=== PATIENT | female | born 1950 | race Caucasian/White ===

== ENCOUNTER 2018-11-25 10:58 | Inpatient (IN) ==
[2018-11-25] MEDS ORDERED: Ipratropium/Albuterol Neb 3 ML IH ONE (11:09)
[2018-11-25] MEDS ORDERED: methylPREDNISolone 125 MG/2 ML VIAL IVP ONE (11:09)
--- NOTE | 2018-11-25 11:36 | Emergency Department Note ---
Disposition Clinical Impression: Acute exacerbation of chronic obstructive airways disease, BELKIS (acute kidney injury), Hypercalcemia Disposition: Admitted As Inpatient Condition: Undetermined Time of Disposition: 13:40 SOB HPI - General Chief Complaint: ED Shortness of Breath/Dyspnea Stated Complaint: Dizziness Time Seen by Provider: 11/25/18 10:59 Source: patient Mode of arrival: wheelchair Limitations: no limitations Nursing Notes Reviewed: Yes Vital Signs Reviewed: Yes - History of Present Illness 68-year-old female history of COPD, diabetes, hypertension, hyperlipidemia arrives to the emergency department with shortness of breath, cough, lightheaded feeling. The patient states it is worsened with her cough. The patient states that whenever she has a cough she typically gets very short of breath and then whenever she stands up she becomes lightheaded. Patient has had no associated f alls. She denies any associated chest pain. Patient denies any fevers but does admit to chills. She has no other complaints at this time. She was noted to be 85 on my initial evaluation in the room on room air. She does not wear oxygen at home. The patient denies any nausea, vomiting, diarrhea, melena, hematochezia, headache, focalized weakness. No previous history of CVA. - Related Data Home Medications Medication Instructions Recorded Confirmed Albuterol Sulfate [Proair 90 mcg IH Q6H PRN 06/22/18 06/23/18 Respiclick] Aspirin [Lo-Dose Aspirin EC] 81 mg PO DAILY 06/22/18 06/23/18 Citalopram [CeleXA] 20 mg PO DAILY 06/22/18 06/23/18 Losartan [Cozaar] 50 mg PO DAILY 06/22/18 06/23/18 Magnesium Oxide [Magnesium] 250 mg PO BID 06/22/18 06/23/18 Spironolactone [Aldactone] 25 mg PO DAILY 06/22/18 06/23/18 Benzonatate 100 mg PO TID 06/23/18 06/23/18 Budesonide/Formoterol 160/4.5 2 puff IH BID 06/23/18 06/23/18 [Symbicort 160/4.5] Loratadine [Claritin] 10 mg PO DAILY 06/23/18 06/23/18 Metformin HCl 1,000 mg PO BID 06/23/18 06/23/18 Tiotropium [Spiriva] 1 puff IH DAILY 06/23/18 06/23/18 Allergies Allergy/AdvReac Type Severity Reaction Status Date / Time No Known Allergies Allergy Verified 10/14/17 20:37 All systems ED: reviewed and negative except as stated. Constitutional: Denies: fever, chills, weakness Eyes: Denies: vision change ENT ED: Denies: dysphagia Cardiovascular: Denies: chest pain Respiratory: Reports: cough, dyspnea, wheezes, sputum production. Denies: hemoptysis Gastrointestinal: Reports: constipation. Denies: abdominal pain, nausea, vomiting, diarrhea, hematemesis, melena, hematochezia Genitourinary: Denies: urgency Musculoskeletal: Denies: back pain Integumentary: Denies: rash Neurological: Denies: headache, weakness, numbness, paresthesias, confusion, vertigo Past Medical History - Past Medical History Attestation: Yes The following information was validated with the patient. Source: patient, old records reviewed Medical history: Reports: COPD, diabetes, hyperlipidemia, hypertension Surgical history: Reports: non-contributory Psychiatric history: Reports: no psych history - Social History Smoking Status: Current every day smoker Smokeless Tobacco Status: No Alcohol use: Reports: none Drug use: Reports: none Physical Exam - General Limitations: no limitations General appearance: alert, in distress (mild respiratory) - Head Head exam: atraumatic, normocephalic, normal inspection - Eye Eye exam: Present: normal appearance, PERRL, EOMI - ENT ENT exam: normal exam, normal oropharynx, mucous membranes moist - Neck Neck exam: Present: normal inspection, full ROM, trachea midline - Chest Chest inspection: Present: normal inspection, symmetric chest wall rise - Respiratory Respiratory exam: Present: respiratory distress (mild), accessory muscle use, other (decreased breath sounds bilaterally) - Cardiovascular Cardiovascular exam: Present: regular rate, normal rhythm, normal heart sounds - Abdominal Exam Abdominal exam: Present: soft, Non-Tender. Absent: tenderness, distention, guarding, rebound, rigidity - Extremities Exam Extremities exam: Present: normal inspection, full ROM, normal capillary refill. Absent: tenderness, pedal edema - Neurological Exam Neurological exam: Present: alert, oriented X3 - Skin Skin exam: Present: warm, dry, intact, normal color Course - Reevaluation(s) Reevaluation #1: Patient states she is feeling much better after getting breathing treatments. We did note that the patient had a calcium of 16.5 with an acute kidney injury with a creatinine 2.69 which appears new on lab work. Given these finding of elevated calcium the patient was started on aggressive IV fluid treatment. We paged nephrology. Currently awaiting return call. Ionized calcium ordered and repeat BMP was ordered. Time: 12:47 - Consultations Consultation #1: I spoke with Dr. Spencer in nephrology who agreed with treatment plan she will see the patient consultation. No further recommendations given here in the e mergency department. Time: 13:39 Vital Signs Temperature 97.5 F L 11/25/18 11:06 Pulse Rate 66 11/25/18 11:06 Respiratory Rate 20 11/25/18 11:06 Blood Pressure 155/67 11/25/18 11:06 O2 Sat by Pulse Oximetry 91 11/25/18 11:06 Temperature 97.5 F L 11/25/18 11:06 Pulse Rate 67 11/25/18 13:22 Respiratory Rate 18 11/25/18 13:22 Blood Pressure 158/55 11/25/18 13:22 O2 Sat by Pulse Oximetry 94 11/25/18 13:22 Oxygen Delivery Oxygen Delivery Room Air Shortness of Breath/Dyspnea - MDM Narrative Medical decision making narrative: Patient's workup in the emergency department should 20 consistent with COPD exacerbation. In addition the patient was noted to have an acute kidney injury and elevated calcium at 6.45. Patient was given 3 L of IV fluids given the patient's large amount of elevated calcium. Patient will be admitted to the hospital this time. Nephrology was consulted and will see the patient consultation. Patient was accepted to the hospital by Dr. Roach. - Lab Data Lab results reviewed: Yes I reviewed the patient's lab results. Result diagrams: 11/25/18 11:32 11/25/18 16:17 Lab Results 11/25/18 11/25/18 11/25/18 Range/Units 11:32 11:32 11:32 WBC 11.0 (4.3-11.1) K/mcL RBC 5.43 H (3.82-4.97) M/mcL Hgb 17.4 H (11.5-15.4) g/dL Hct 50.9 H (35.3-44.9) % MCV 93.7 (83.0-100.0) fL MCH 32.0 (28.0-33.3) pg MCHC 34.2 (31.6-35.5) g/dL RDW 12.9 (11.5-14.5) % Plt Count 340 (140-400) K/mcL MPV 10.2 (9.4-12.4) fL Immature Gran % 0.5 (0-4) % Seg Neutrophils % 82.0 % Lymphocytes % 10.6 % Monocytes % 6.1 % Eosinophils % 0.4 % Basophils % 0.4 % Neutrophils # 9.0 H (1.6-8.9) K/mcL Lymphocytes # 1.2 (0.6-4.6) K/mcL Monocytes # 0.7 (0.0-1.3) K/mcL Eosinophils # 0.0 (0.0-0.6) K/mcL Basophils # 0.0 (0.0-0.2) K/mcL Sodium 132 L (136-145) mEq/L Potassium 4.6 (3.5-5.1) mEq/L Chloride 92 L (98-107) mEq/L Carbon Dioxide 31 H (23-29) mEq/L BUN 39 H (8-23) mg/dL Creatinine 2.69 H (0.60-1.20) mg/dL Est GFR ( Amer) 21 L (> 60) Est GFR (Non-Af Amer) 17 L (> 60) BUN/Creatinine Ratio 14 (6-26) Glucose 155 H (70-105) mg/dL Calculated Osmolality 287 (280-300) Lactic Acid (0.5-2.2) mmol/L Calcium 16.5 H* (8.6-10.3) mg/dL Venous Ioniz Calcium (1.15-1.35) mmol/L Troponin I < 0.03 (< 0.04) ng/mL B-Natriuretic Peptide 107 H (Less than 100) pg/mL 11/25/18 11/25/18 11/25/18 Range/Units 11:47 13:02 13:02 WBC (4.3-11.1) K/mcL RBC (3.82-4.97) M/mcL Hgb (11.5-15.4) g/dL Hct (35.3-44.9) % MCV (83.0-100.0) fL MCH (28.0-33.3) pg MCHC (31.6-35.5) g/dL RDW (11.5-14.5) % Plt Count (140-400) K/mcL MPV (9.4-12.4) fL Immature Gran % (0-4) % Seg Neutrophils % % Lymphocytes % % Monocytes % % Eosinophils % % Basophils % % Neutrophils # (1.6-8.9) K/mcL Lymphocytes # (0.6-4.6) K/mcL Monocytes # (0.0-1.3) K/mcL Eosinophils # (0.0-0.6) K/mcL Basophils # (0.0-0.2) K/mcL Sodium (136-145) mEq/L Potassium (3.5-5.1) mEq/L Chloride (98-107) mEq/L Carbon Dioxide (23-29) mEq/L BUN (8-23) mg/dL Creatinine (0.60-1.20) mg/dL Est GFR ( Amer) (> 60) Est GFR (Non-Af Amer) (> 60) BUN/Creatinine Ratio (6-26) Glucose (70-105) mg/dL Calculated Osmolality (280-300) Lactic Acid 1.4 1.8 (0.5-2.2) mmol/L Calcium 14.8 H* (8.6-10.3) mg/dL Venous Ioniz Calcium (1.15-1.35) mmol/L Troponin I (< 0.04) ng/mL B-Natriuretic Peptide (Less than 100) pg/mL 11/25/18 Range/Units 13:13 WBC (4.3-11.1) K/mcL RBC (3.82-4.97) M/mcL Hgb (11.5-15.4) g/dL Hct (35.3-44.9) % MCV (83.0-100.0) fL MCH (28.0-33.3) pg MCHC (31.6-35.5) g/dL RDW (11.5-14.5) % Plt Count (140-400) K/mcL MPV (9.4-12.4) fL Immature Gran % (0-4) % Seg Neutrophils % % Lymphocytes % % Monocytes % % Eosinophils % % Basophils % % Neutrophils # (1.6-8.9) K/mcL Lymphocytes # (0.6-4.6) K/mcL Monocytes # (0.0-1.3) K/mcL Eosinophils # (0.0-0.6) K/mcL Basophils # (0.0-0.2) K/mcL Sodium (136-145) mEq/L Potassium (3.5-5.1) mEq/L Chloride (98-107) mEq/L Carbon Dioxide (23-29) mEq/L BUN (8-23) mg/dL Creatinine (0.60-1.20) mg/dL Est GFR ( Amer) (> 60) Est GFR (Non-Af Amer) (> 60) BUN/Creatinine Ratio (6-26) Glucose (70-105) mg/dL Calculated Osmolality (280-300) Lactic Acid (0.5-2.2) mmol/L Calcium (8.6-10.3) mg/dL Venous Ioniz Calcium 1.84 H (1.15-1.35) mmol/L Troponin I (< 0.04) ng/mL B-Natriuretic Peptide (Less than 100) pg/mL - Radiology Data Radiology results reviewed: Yes I reviewed the patient's radiology results. Chest X-Ray 11/25/18 11:09 IMPRESSION: No radiographic evidence of acute cardiopulmonary process. D/ / Vinicio Covington MD / Vinicio Covington MD Interpreting Provider: Vinicio Covington MD - EKG Data EKG attestation: Yes I reviewed and interpreted this EKG. EKG results narrative: Heart rate 60 bpm. Normal sinus rhythm. No ST depression but ST elevation noted in isolated V3. Repeat EKG: Heart rate 63 beats for minute. Normal sinus rhythm. No ST elevation or ST depression noted. Isolated ST elevation in V3 previously seen likely due to artifact. Attestation Statement - Attestation Attestation: Resident Attestation: I examined this patient and my medical decision making was reviewed with the Resident Physician. I agree with the documented findings, disposition and treatment plan as described except to the extent set forth below. We independently had [id number] contact with the patient. EKG reviewed with resident physician and agree with documentation. Patient presenting for evaluation of shortness of breath as well as near syncope. Patient with diffuse wheezing on exam. History of COPD. Home treatments with inhaler as well as controller medication which has been switched recently. Patient will undergo further evaluation for underlying dyspnea as well as possible cardiac involvement. Patient was found to have significant hypercalcemia. Patient will need under lying evaluation for underlying cause. Patient be admitted for further management of her respiratory status as well as underlying electro light on the modalities.
[2018-11-25 11:55] LABS: Basophils % 0.4 %; Eosinophils % 0.4 %; Hematocrit 50.9 % (35.3-44.9); Hemoglobin 17.4 g/dL (11.5-15.4); Immature Granulocytes % 0.5 % (0-4); Lymphocytes # 1.2 K/mcL (0.6-4.6); Lymphocytes % 10.6 %; Mean Corpuscular HGB Conc 34.2 g/dL (31.6-35.5); Mean Corpuscular Volume 93.7 fL (83.0-100.0); Mean Platelet Volume 10.2 fL (9.4-12.4); Monocytes # 0.7 K/mcL (0.0-1.3); Monocytes % 6.1 %; Platelet Count 340 K/mcL (140-400); Red Blood Count 5.43 M/mcL (3.82-4.97); Red Cell Distribution Width 12.9 % (11.5-14.5)
[2018-11-25 12:14] LABS: BUN/Creatinine Ratio 14 (6-26); Blood Urea Nitrogen 39 mg/dL (8-23); Calcium 16.5 mg/dL (8.6-10.3); Carbon Dioxide 31 mEq/L (23-29); Chloride 92 mEq/L (98-107); Glucose 155 mg/dL (70-105); Osmolality,Calculated 287 (280-300); Potassium 4.6 mEq/L (3.5-5.1); Sodium 132 mEq/L (136-145); Troponin I < 0.03 ng/mL (< 0.04); eGFR For Non-African Americans 17 (> 60)
[2018-11-25] MEDS ORDERED: 0.9 % Sodium Chloride 1,000 ML IVC ONE ×3 (12:15→12:29)
[2018-11-25 13:16] LABS: VBG Ionized Calcium 1.84 mmol/L (1.15-1.35)
[2018-11-25] MEDS ORDERED: Naloxone 0.4 MG/ML INJ IVP PRN (15:46)
[2018-11-25] MEDS ORDERED: Azithromycin 250 MG TABLET PO ONE (15:52)
[2018-11-25] MEDS ORDERED: Ipratropium/Albuterol Neb 3 ML IH PRN (15:55)
--- NOTE | 2018-11-25 16:03 | Internal Med History&Physical ---
<Juan Frakn R - Last Filed: 11/25/18 15:56> Date of Encounter: 11/25/18 Time of Encounter: 15:56 Internal Medicine - H&P: HPI Chief complaint: Shortness of breath Admitted From: Emergency Dept Plans for Post Hospital Care: Home History of present illness: Ms. Cruz is a 68 year old female with PMH of COPD, T2DM, HTN, HLD, CKD III, and tobacco use, presented with worsening dyspnea, cough, chills, and l ightheadedness. She states she has not been feeling well for the past month, but these symptoms are progressively getting worse over the past few days. She did have a fever last week around 100, and at this time she was started on doxycycline for a sinus infection. She reports decreased appetite and PO intake over this time period. She also reports nausea and abdominal tenderness, which have been more chronic in nature and she is undergoing workup for possible gallbladder pathology. She denies chest pain, palpitations, vomiting, diarrhea, constipation, melena, hematochezia, dysuria, decreased urine output, or edema. In the ED she was hypoxic at 87% and placed on O2 supplementation for COPD exacerbation. She was found to have acute kidney injury with SCr 2.69 and hypercalcemia with Ca 16.5. She received 3L NS in the ED, duoneb, and solu- medrol. CXR showed no acute findings. Nephrology was contacted from the ED who agreed with aggressive rehydration. She does follow with [facility]. She does report to taking a vitamin D supplement. Past Med Surg Social Fam HX - Past Medical History Medical history: COPD, diabetes, hyperlipidemia, hypertension Psychiatric history: no psych history - Past Surgical History Surgical History: non-contributory Additional surgical history: Femoral artery stent, tonsillectomy - Social History Smoking Status: Current every day smoker Smokeless Tobacco Status: No Alcohol use: none Drug use: none - Family History Mother Living Status: Age at : 63 Cause of : [place] Father Living Status: Hx Family Cancer: Yes (testicular) Internal Medicine - H&P: Meds Albuterol Sulfate [Proair Respiclick] 90 mcg IH Q6H PRN 06/22/18 [History] Aspirin [Lo-Dose Aspirin EC] 81 mg PO DAILY 06/22/18 [History] Citalopram [CeleXA] 20 mg PO DAILY 06/22/18 [History] Losartan [Cozaar] 50 mg PO DAILY 06/22/18 [History] Magnesium Oxide [Magnesium] 250 mg PO BID 06/22/18 [History] Spironolactone [Aldactone] 25 mg PO DAILY 06/22/18 [History] Benzonatate 100 mg PO TID 06/23/18 [History] Budesonide/Formoterol 160/4.5 [Symbicort 160/4.5] 2 puff IH BID 06/23/18 [History] Loratadine [Claritin] 10 mg PO DAILY 06/23/18 [History] Metformin HCl 1,000 mg PO BID 06/23/18 [History] Tiotropium [Spiriva] 1 puff IH DAILY 06/23/18 [History] 3 Allergy/AdvReac Type Severity Reaction Status Date / Time No Known Allergies Allergy Verified 10/14/17 20:37 All Systems PM: A 10-system review of systems was performed and is negative for pertinent findings except as documented above in the HPI. - Constitutional Vitals: Temp Pulse Resp BP Pulse Ox 97.5 F L 67 18 158/55 94 11/25/18 11:06 11/25/18 13:22 11/25/18 13:22 11/25/18 13:22 11/25/18 13:22 Exam: GEN: No acute distress, A&O3 HEAD: Atraumatic, normocephalic EYES: Pupils symmetric, sclera white, conjunctiva pink HEART: RRR, normal S1 and S2, no murmurs LUNGS: Coarse bilaterally with mild expiratory wheezes, no rhonchi or crackles ABD: Soft, tender in epigastric, RUQ, RLQ, and suprapubic regions, no guarding or rigidity, nondistended, bowel sounds present EXT: No edema noted, pulses 2/4 NEURO: No focal deficits, cooperative with exam Internal Med - H&P Results - Labs CBC & Chem 7: 11/25/18 11:32 11/25/18 11:32 Labs: Short CBC 11/25/18 Range/Units 11:32 WBC 11.0 (4.3-11.1) K/mcL Hgb 17.4 H (11.5-15.4) g/dL Hct 50.9 H (35.3-44.9) % Plt Count 340 (140-400) K/mcL Neutrophils # 9.0 H (1.6-8.9) K/mcL BMP 11/25/18 11/25/18 11:32 13:02 Sodium 132 L Potassium 4.6 Chloride 92 L Carbon Dioxide 31 H BUN 39 H Creatinine 2.69 H Glucose 155 H Calcium 16.5 H* 14.8 H* Cardiac Enzymes 11/25/18 Range/Units 11:32 Troponin I < 0.03 (< 0.04) ng/mL - Impressions ITS Impressions Chest X-Ray 11/25/18 11:09 IMPRESSION: No radiographic evidence of acute cardiopulmonary process. D/ / Vinicio Covington MD / Vinicio Covington MD Interpreting Provider: Vinicio Covington MD - Assessment and Plan (1) Hypercalcemia Current Visit: Yes Status: Acute Assessment and plan: Initially calcium of 16.3, now downtredning to 14.8 after fluid boluses No acute confusion, but patient does have abdominal pain (chronic vs hypercalcemia induced) EKG did show some ST elevation in V2 and V3, which may be seen in hypercalcemia - troponin negative, no CP. Consider repeat EKG after hypercalcemia is resolved Likely related to BELKIS and dehydration - will continue IV fluids at 150 ml/hr Will recheck renal function and calcium now Will check TSH, PTH, and vitamin D Heavy smoker and prior improving pulmonary nodules, so if not improving with hydration, will have a low threshold to get chest CT (2) Acute kidney injury superimposed on chronic kidney disease Current Visit: Yes Status: Acute Assessment and plan: Likely prerenal with recent decreased PO intake SCr 2.69 and GFR 17, baseline SCr 1.0 and GFR 50's Continue IV fluids, I/O's Hold losartan and spironolactone Will check UA and renal US Nephrology consulted from ED, appreciate recommendations (3) Acute exacerbation of chronic obstructive airways disease Current Visit: Yes Status: Acute Assessment and plan: Coarse lung sound and requiring supplemental O2 No acute findings on CXR Will start prednisone 40mg daily, duonebs, and azithromycin Resume maintenance inhalers once reconciled (4) Abdominal pain Current Visit: Yes Status: Acute Assessment and plan: Tenderness to palpation of epigastric, RUQ, RLQ, and suprapubic regions May be chronic as she is undergoing gallbladder work-up or 2/2 hypercalcemia - previous images show polyp vs stone on GB ultrasound, and on Abd MRI 7mm nonenhancing cystic lesion in pancreatic head, may be side branch of IPMN and mild pancreatic duct dilation Will monitor her symptoms closely as her calcium is corrected - consider repeat imaging if not improving or worsening Qualifiers: Abdominal location: generalized Qualified Code(s): R10.84 - Generalized abdominal pain (5) Tobacco abuse Current Visit: Yes Status: Chronic Assessment and plan: Nicotine patch (6) Diabetes Current Visit: Yes Status: Acute Assessment and plan: Hold metformin Low-dose SSI Qualifiers: Diabetes mellitus type: type 2 Diabetes mellitus long term care pharmacist insulin use: unspecified long term care pharmacist insulin use status Diabetes mellitus complication status: with unspecified complications Qualified Code(s): E11.8 - Type 2 diabetes mellitus with unspecified complications; N18.3 - Chronic kidney disease, stage 3 (moderate) (7) Hypertension Current Visit: Yes Status: Acute Assessment and plan: Hold home meds d/t BELKIS PO hydralazine as needed at this time Qualifiers: Hypertension type: essential hypertension Qualified Code(s): I10 - Essential (primary) hypertension (8) Hyperlipidemia Current Visit: Yes Status: Acute Assessment and plan: Resume home med once reconciled Qualifiers: Hyperlipidemia type: unspecified Qualified Code(s): E78.5 - Hyperlipidemia, unspecified - Time Spent With Patient Total time spent is greater than 50% in coordination of care (as documented) at patient's floor/unit and/or counseling patient: <Chris Terrell - Last Filed: 11/25/18 17:11> Date of Encounter: 11/25/18 Internal Medicine - H&P: HPI History of present illness: Ms. Cruz is a 68 year old female All Systems PM: A 10-system review of systems was performed and is negative for pertinent findings except as documented above in the HPI. - Constitutional Vitals: Temp Pulse Resp BP Pulse Ox 97.5 F L 67 18 158/55 94 11/25/18 11:06 11/25/18 13:22 11/25/18 13:22 11/25/18 13:22 11/25/18 13:22 Internal Med - H&P Results - Labs CBC & Chem 7: 11/25/18 11:32 11/25/18 11:32 Labs: Short CBC 11/25/18 Range/Units 11:32 WBC 11.0 (4.3-11.1) K/mcL Hgb 17.4 H (11.5-15.4) g/dL Hct 50.9 H (35.3-44.9) % Plt Count 340 (140-400) K/mcL Neutrophils # 9.0 H (1.6-8.9) K/mcL BMP 11/25/18 11/25/18 11:32 13:02 Sodium 132 L Potassium 4.6 Chloride 92 L Carbon Dioxide 31 H BUN 39 H Creatinine 2.69 H Glucose 155 H Calcium 16.5 H* 14.8 H* Cardiac Enzymes 11/25/18 Range/Units 11:32 Troponin I < 0.03 (< 0.04) ng/mL - Impressions ITS Impressions Chest X-Ray 11/25/18 11:09 IMPRESSION: No radiographic evidence of acute cardiopulmonary process. D/ / Vinicio Covington MD / Vinicio Covington MD Interpreting Provider: Vinicio Covington MD - Assessment and Plan (1) Respiratory failure Current Visit: Yes Status: Acute Qualifiers: Chronicity: acute Respiratory failure complication: hypoxia Qualified Code(s): J96.01 - Acute respiratory failure with hypoxia (2) Acute exacerbation of chronic obstructive airways disease Current Visit: Yes Status: Acute (3) Hypercalcemia Current Visit: Yes Status: Acute (4) Acute renal failure Current Visit: Yes Status: Suspected Qualifiers: Acute renal failure type: with acute tubular necrosis Qualified Code(s): N17.0 - Acute kidney failure with tubular necrosis (5) Diabetes Current Visit: Yes Status: Chronic Qualifiers: Diabetes mellitus type: type 2 Diabetes mellitus half-way insulin use: unspecified long term care pharmacist insulin use status Diabetes mellitus complication status: with kidney complications Diabetes mellitus complication detail: with chronic kidney disease Chronic kidney disease stage: stage 3 (moderate) Qualified Code(s): E11.22 - Type 2 diabetes mellitus with diabetic chronic kidney disease; N18.3 - Chronic kidney disease, stage 3 (moderate) (6) Hypertension Current Visit: Yes Status: Chronic Qualifiers: Hypertension type: essential hypertension Qualified Code(s): I10 - Essential (primary) hypertension (7) Hyperlipidemia Current Visit: Yes Status: Chronic Qualifiers: Hyperlipidemia type: unspecified Qualified Code(s): E78.5 - Hyperlipidemia, unspecified (8) Tobacco abuse Current Visit: Yes Status: Chronic - Time Spent With Patient Total time spent is greater than 50% in coordination of care (as documented) at patient's floor/unit and/or counseling patient: - Attending Attestation I examined this patient and my medical decision-making was reviewed with the Resident Physician on 11/25/18. I agree with the documented findings, disposition and treatment plan as described except to the extent set forth below. Ms Cruz is 68 y/o female presented with increasing dyspnea. She was evaluated and found to have exacerbation of COPD. She was also noted to have acute renal failure and hypercalcemia. She was given IV fluids and treatment of COPD and admitted. At this time she remains thirsty and somewhat dyspneic. Exam alert Comfortable on edge of bed Mucus membranes dry Heart reg and not tachy Diffuse end exp wheeze abd soft with some diffuse tenderness. No peritoneal signs No edema Pt is alert and oriented. I/P 1. Acute resp failure with hypoxia 2. Acute exac COPD 3. Hypercalcemia - no apparent cause at this time. Check PTH, vit D level. Fluids. Nephro consult ordered per ED. If neg would get PTHrelated peptide (pt has risk for lung cancer). 4. Acute renal failure - most likely prerenal. Fluids ordered Further diagnoses and plan as above.
[2018-11-25] MEDS ORDERED: *HR* Dextrose 50 % in Water (Syg) 50 ML SYRINGE IVP PRN (16:15)
[2018-11-25] MEDS ORDERED: Dextrose Gel 15 GM/37.5 ML TUBE PO PRN ×2 (16:15)
[2018-11-25] MEDS ORDERED: D5% in Water 1,000 ML IVC PRN (16:15)
[2018-11-25 16:55] LABS: Albumin/Globulin Ratio 1.2 (1.1-2.2); Bilirubin,Total 0.4 mg/dL (0.3-1.0); Calcium 14.1 mg/dL (8.6-10.3); Globulin 3.3 g/dL (2.4-3.5); Potassium 4.5 mEq/L (3.5-5.1); Total Protein 7.3 g/dL (6.4-8.9)
[2018-11-25] MEDS: hydrALAZINE 10 MG TABLET PO PRN (17:08)
[2018-11-25] MEDS: Nicotine 21 MG PATCH.TD24 TD SCH (17:08)
[2018-11-25] MEDS: 0.9 % Sodium Chloride 1,000 ML IVC SCH (17:08)
[2018-11-25] MEDS: Insulin LISPRO 300 UNITS/3 ML VIAL SQ SCH ×2 (17:09→21:51)
--- NOTE | 2018-11-25 22:21 | Event Note ---
Date of Encounter: 11/25/18 Time of Encounter: 22:00 Alerted by pts. nurse PAOLA Smiley that the pt. fell. Went to see the pt. who was now resting in bed. Pt. denied any LOC, pre-syncope, dizziness, or lightheadedness. Pt. stated she attempted to use the restroom and fell to her knees. Denied hitting head or any other part of her body. STAT bilateral XR of the knees ordered. Falls precautions and up with assist only ordered. I personally instructed the pt. that she is not to get out of bed by herself and is to use her call light when she needs to get up. Pt. expressed understanding and agreement to plan. Nurse instructed to continue monitoring the pt. closely and alert me immediately of any adverse changes. X-ray imaging shows d egenerative changes in knees without gross fracture.
[2018-11-26] MEDS: 0.9 % Sodium Chloride 1,000 ML IVC SCH (00:33)
[2018-11-26 06:41] LABS: Basophils % 0.1 %; Hematocrit 43.1 % (35.3-44.9); Immature Granulocytes % 0.6 % (0-4); Lymphocytes % 5.3 %; Mean Corpuscular HGB Conc 33.4 g/dL (31.6-35.5); Mean Corpuscular Hemoglobin 31.6 pg (28.0-33.3); Mean Corpuscular Volume 94.5 fL (83.0-100.0); Mean Platelet Volume 10.2 fL (9.4-12.4); Monocytes # 0.7 K/mcL (0.0-1.3); Monocytes % 3.6 %; Platelet Count 282 K/mcL (140-400); Red Blood Count 4.56 M/mcL (3.82-4.97); Segmented Neutrophils % 90.4 %
[2018-11-26 06:42] LABS: Hemoglobin 14.4 g/dL (11.5-15.4)
[2018-11-26 06:52] LABS: Calcium 12.3 mg/dL (8.6-10.3); Phosphorous 2.4 mg/dL (2.7-4.5); Potassium 4.1 mEq/L (3.5-5.1)
[2018-11-26] MEDS: predniSONE 20 MG TABLET PO SCH (08:24)
[2018-11-26] MEDS: Nicotine 21 MG PATCH.TD24 TD SCH (08:24)
[2018-11-26] MEDS: Insulin LISPRO 300 UNITS/3 ML VIAL SQ SCH ×4 (08:27→21:19)
[2018-11-26] MEDS: hydrALAZINE 10 MG TABLET PO PRN (08:46)
--- NOTE | 2018-11-26 11:00 | Internal Med Progress Note ---
Hospitalist Progress Note - Encounter Date of Encounter: 11/26/18 Time of Encounter: 10:52 - Subjective Interval History: Ms Cruz is currently admitted for acute exac COPD, hypercalcemia and renal failure. She remains moderate to high risk due to potential for worsening clinical status. Ms Cruz is breathing better today. She says she got up and fell on her knees last night. No issues now. Still feels thirsty. Having issues with abd discomfort at night and awakens with discomfort in her neck and dyspnea. Has had a lot of heartburn. Seeing Dr. Boggs and sounds like she is to have a gastric emptying test in the future. Currently no symptoms. Had hospitalization for pneumonia in the past. CT had nodules and follow up seemed to be improved. She has taken a lot of TUMS as well. Currently on Vit D supplement. PTH drawn last night and consistent with malignancy. PTH related peptide pending. - Exam Vitals: Temp Pulse Resp BP Pulse Ox 98.5 F 116 16 193/93 92 11/26/18 08:26 11/26/18 08:26 11/26/18 08:26 11/26/18 08:26 11/26/18 08:26 Exam: General: Alert and oriented. Comfortable at this time. Family at bedside Skin: Normal color, no rash, H: Normocephalic. EENT: EOMI, pupils equal. Mucus membranes dry. Cardiovascular: Normal S1 & S2, no murmurs Pulse regular. Not tachycardic Lungs: Decreased breath sounds. Clearer than yesterday. Some rhonchi heard bilaterally. No wheeze. Abdomen: Soft, non-tender, Normal bowel sounds. Extremities: No deformity, no edema or tenderness Neurological: Normal cognition and motor skills. Pulses: radial pulses normal +2. Rest of the physical exam is non contributory - Assessment and Plan (1) Respiratory failure Current Visit: Yes Status: Acute Assessment and Plan: Pt admitted with acute hypoxic resp failure due to COPD exacerbation. She michelle nues to require oxygen supplementation. Plan Wean O2 as able Decrease steroids Continue IV abx Restart home meds. (2) Acute exacerbation of chronic obstructive airways disease Current Visit: Yes Status: Acute Assessment and Plan: Continuing to improve. Wean oxygen as able and decrease steroids today. (3) Hypercalcemia Current Visit: Yes Status: Acute Assessment and Plan: Pt presented with calcium of greater than 14. Has received IV fluids. Had abdominal pain but no confusion. Continue hydration. Highly suspicious for malignancy (PTH related peptide pending). CT of chest ordered today. Pt was taking a lot of TUMS - may be excess calcium intake. PTH normal level. Appreciate nephro input. (4) Acute renal failure Current Visit: Yes Status: Suspected Assessment and Plan: Renal function elevated on admission. Remains elevated today. Receiving IV fluids. Renal ultrasound negative. Nephrology appreciated. (5) Diabetes Current Visit: Yes Status: Chronic Assessment and Plan: Blood sugar controlled at this time. (6) Hypertension Current Visit: Yes Status: Chronic Assessment and Plan: Uncontrolled today. Cozaar on hold due to renal function. Start Norvasc today. PRN Hydralazine. (7) Hyperlipidemia Current Visit: Yes Status: Chronic Assessment and Plan: Continue home meds. (8) Tobacco abuse Current Visit: Yes Status: Chronic Assessment and Plan: Cessation counselling. Nicotine patch (9) Indigestion Current Visit: Yes Status: Chronic Assessment and Plan: Pt has had issues with heartburn. Has been seeing Dr. Boggs as outpatient. ASTON Campbell. - Time Spent with Patient Total time spent is greater than 50% in coordination of care (as documented) at patient's floor/unit and/or counseling patient: Internal Medicine: Result - Labs CBC & Chem 7: 11/26/18 06:21 11/26/18 06:21 Labs: Short CBC 11/25/18 11/26/18 Range/Units 11:32 06:21 WBC 11.0 18.8 H D (4.3-11.1) K/mcL Hgb 17.4 H 14.4 D (11.5-15.4) g/dL Hct 50.9 H 43.1 (35.3-44.9) % Plt Count 340 282 (140-400) K/mcL Neutrophils # 9.0 H 17.0 H (1.6-8.9) K/mcL BMP 11/25/18 11/25/18 11/25/18 11:32 13:02 16:17 Sodium 132 L 134 L Potassium 4.6 4.5 Chloride 92 L 101 Carbon Dioxide 31 H 25 BUN 39 H 37 H Creatinine 2.69 H 2.44 H Glucose 155 H 192 H Calcium 16.5 H* 14.8 H* 14.1 H* 11/26/18 06:21 Sodium 134 L Potassium 4.1 Chloride 104 Carbon Dioxide 23 BUN 44 H Creatinine 2.31 H Glucose 154 H Calcium 12.3 H Cardiac Enzymes 11/25/18 Range/Units 11:32 Troponin I < 0.03 (< 0.04) ng/mL Liver Function 11/25/18 Range/Units 16:17 Total Bilirubin 0.4 (0.3-1.0) mg/dL AST 18 (13-39) Units/L ALT 13 (7-52) Units/L Alkaline Phosphatase 97 (34-104) Units/L Albumin 4.0 (3.5-5.7) g/dL - Impressions Impressions Chest X-Ray 11/25/18 11:09 IMPRESSION: No radiographic evidence of acute cardiopulmonary process. D/ / Vinicio Covington MD / Vinicio Covington MD Interpreting Provider: Vinicio Covington MD Retroperitoneum Ultrasound 11/25/18 18:30 IMPRESSION: Unremarkable ultrasound of the kidneys and urinary bladder. D/ / Xander Ramos MD / Xander Ramos MD Interpreting Provider: Xander Ramos MD Knee X-Ray 11/25/18 22:03 IMPRESSION: Degenerative change, without gross fracture. D/ / Narayan Hernandez MD / Narayan Hernandez MD Interpreting Provider: Narayan Hernandez MD Consult Discharge Plan - Plan Referrals: Palma Chacko, ADMINISTRATIVE STAFF SUPERVISOR [Primary Care Provider] - (1) Respiratory failure Qualifiers: Chronicity: acute Respiratory failure complication: hypoxia Qualified Code(s): J96.01 - Acute respiratory failure with hypoxia (4) Acute renal failure Qualifiers: Acute renal failure type: with acute tubular necrosis Qualified Code(s): N17.0 - Acute kidney failure with tubular necrosis (5) Diabetes Qualifiers: Diabetes mellitus type: type 2 Diabetes mellitus [facility] insulin use: without [facility] use Diabetes mellitus complication status: with kidney complications Diabetes mellitus complication detail: with chronic kidney disease Chronic kidney disease stage: stage 3 (moderate) Qualified Code(s): E11.22 - Type 2 diabetes mellitus with diabetic chronic kidney disease; N18.3 - Chronic kidney disease, stage 3 (moderate) (6) Hypertension Qualifiers: Hypertension type: essential hypertension Qualified Code(s): I10 - Essential (primary) hypertension (7) Hyperlipidemia Qualifiers: Hyperlipidemia type: mixed hyperlipidemia Qualified Code(s): E78.2 - Mixed hyperlipidemia
[2018-11-26] MEDS: Budesonide/Formoterol 160/4.5 1 PUFF INH IH SCH ×2 (11:50→20:36)
--- NOTE | 2018-11-26 12:02 | Nephrology Consult Note ---
Date of Encounter: 11/26/18 Time of Encounter: 12:00 Assessment and Plan (1) Hypercalcemia Current Visit: Yes Status: Acute Elevated calcium in the setting of tums use with active smoking r/o malignancy Agree with aggressive volume repletion already, encouraged po fluids PTh, TSH and vitamin D WNL, await PTHrp and vit D 1,25 OD levels Will also check SPEP and UPEP, LDH and MARY levels Will consider skeletal bone survey if needed Agree with CT Chest done today Calcium currently at 12.3, imporving. Bisphosphonate not indicated at present (2) Acute kidney injury superimposed on chronic kidney disease Current Visit: Yes Status: Acute SCr slightly improved at 2.31, GFR 21 likely pre-renal with hypercalcemia Continue fluids Avoid nephrotoxins if possible (3) CKD (chronic kidney disease) stage 3, GFR 30-59 ml/min Current Visit: Yes Status: Acute Baseline CKD with GFR 40-50s (4) Hyponatremia Current Visit: Yes Status: Acute Sodium noted at 134, has a history of hyponatremia requiring salt tabs in the past May have salt packets with meals History of Present Illness - Reason for Consult Consult date: 11/26/18 Acute Kidney Injury Requesting physician: Chris Terrell - History of Present Illness 68 y o female with PMH of DM, HTN, COPD and stage [address] Bass admitted with SOB and cough diagnosed with COPD exacerbation. Renal consulted for elevated SCr at 2.69, GFR 17 and severely elevated calcium at 16.5. Baseline GFR around 40-50s. Pt denies any prior history of calcium issues but has has hyponatremia, hypokalemia and hypomagnesemia in the past. She reports persistent GI issues requiring Tums use regularly. She also reports lots of dairy intake, mostly cheese. She also reports active tobacco use for over 50 years. Past Med Surg Social Fam HX - Past Medical History Medical history: COPD, diabetes, hyperlipidemia, hypertension Psychiatric history: no psych history - Past Surgical History Surgical History: non-contributory Additional surgical history: Femoral artery stent, tonsillectomy - Social History Smoking Status: Current every day smoker Smokeless Tobacco Status: No Alcohol use: none Drug use: none - Family History Mother Living Status: Age at : 63 Cause of : [place] Father Living Status: Hx Family Cancer: Yes (testicular) Medications and Allergies Albuterol Sulfate [Proair Respiclick] 90 mcg IH Q6H PRN 06/22/18 [History] Aspirin [Lo-Dose Aspirin EC] 81 mg PO DAILY 06/22/18 [History] Spironolactone [Aldactone] 25 mg PO DAILY 06/22/18 [History] Metformin HCl 1,000 mg PO BID 06/23/18 [History] Cholecalciferol (D-3) [Vitamin D] 1,000 unit PO DAILY 11/26/18 [History] Fexofenadine HCl [Allergy Relief] 180 mg PO DAILY 11/26/18 [History] Losartan Potassium 100 mg PO DAILY 11/26/18 [History] Magnesium Oxide [Magnesium] 400 mg PO DAILY 11/26/18 [History] Multivitamin [One Daily] 1 each PO DAILY 11/26/18 [History] Polyethylene Glycol 3350 [MiraLAX] 17 gm PO DAILY 11/26/18 [History] Sodium Chloride [Sodium Chloride Tab] 1 gm PO DAILY 11/26/18 [History] Umeclidinium [place] [Incruse Ellipta] 1 puff IH DAILY 11/26/18 [History] dilTIAZem HCl [Diltiazem HCl] 120 mg PO BID 11/26/18 [History] Allergy/AdvReac Type Severity Reaction Status Date / Time No Known Allergies Allergy Verified 10/14/17 20:37 Review of Systems All Systems review (narrative): The rest of the systems are negative. Constitutional: fatigue (admits), fever(s) (admits) Cardiovascular: chest pain (denies), leg edema (denies) Respiratory: cough (admits), dyspnea (admits) Gastrointestinal: abdominal pain (admits), constipation (admits), dysphagia (admits), early satiety (admits) Exam - Vital Signs Vital signs: Initial Vital Signs Temp Pulse Resp BP Pulse Ox 97.5 F L 66 20 155/67 91 11/25/18 11:06 11/25/18 11:06 11/25/18 11:06 11/25/18 11:06 11/25/18 11:06 Vital Signs - Last 8 Hours Temp Pulse Resp BP Pulse Ox 11/26/18 11:49 98.5 F 90 16 180/76 92 11/26/18 08:26 98.5 F 116 16 193/93 92 11/26/18 04:48 97.8 F 69 17 148/83 97 Intake and Output 11/25/18 11/26/18 11/26/18 23:59 07:59 15:59 Intake Total 1000 / 3000 120 / 120 Output Total 1300 / 1300 Balance 1000 / 3000 -1300 / -1180 120 / -1180 Intake: IV Fluids 1000 / 3000 0.9 % Sodium Chloride 1,000 ML 1000 / 1000 @ 150 mls/hr IVC .[id number] [facility] Rx #:[id number] Oral 120 / 120 Output: Urine 1300 / 1300 Other: Meal Breakfast Percent of Meal Consumed 75% Stool Size Small Stool Consistency soft Stool Color Brown # Voids 1 Blood Glucose* 266 160 - General Appearance General appearance: well-developed, well-nourished EENT: ATNC, mucous membranes moist Neck: no JVD, supple Respiratory: course breath sounds Cardiology: no edema Gastrointestinal: no tenderness, no guarding Integumentary: warm and dry Neurologic: no focal deficit Musculoskeletal: no deformities Psychiatric: mood/affect appropriate, cooperative Results - Lab Results 11/27/18 01:04 11/27/18 04:38 Most recent lab results 11/26/18 06:21 Calcium 12.3 H Phosphorus 2.4 L Consult Discharge Plan - Plan Referrals: Palma Chacko, TRAFFIC OPERATIONS MANAGER [Primary Care Provider] -
[2018-11-26] MEDS: Loratadine 10 MG TABLET PO SCH (12:06)
[2018-11-26] MEDS: Aspirin Enteric Coated 81 MG Tablet PO SCH (12:06)
[2018-11-26] MEDS: Benzonatate 100 MG CAPSULE PO SCH ×2 (13:14→21:18)
[2018-11-26] MEDS: cefTRIAXone 1,000 MG in Water for inj. (sterile) 20 ML 10 ML IVP SCH (13:14)
--- NOTE | 2018-11-26 13:49 | Electrocardiograph Report ---
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
[2018-11-26] MEDS: Acetaminophen 325 MG TABLET PO PRN (14:40)
[2018-11-26] MEDS: amLODIPine 5 MG TABLET PO SCH (14:40)
[2018-11-26] MEDS: Mag Hydrox/Al Hydrox/Simeth 30 ML UDC PO PRN (14:40)
[2018-11-26] MEDS: Azithromycin 250 MG TABLET PO SCH (15:47)
--- NOTE | 2018-11-26 19:23 | Electrocardiograph Report ---
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
[2018-11-27 03:00] LABS: Hematocrit 42.5 % (35.3-44.9); Hemoglobin 14.4 g/dL (11.5-15.4); Mean Corpuscular HGB Conc 33.9 g/dL (31.6-35.5); Mean Corpuscular Hemoglobin 31.6 pg (28.0-33.3); Mean Corpuscular Volume 93.4 fL (83.0-100.0); Mean Platelet Volume 10.7 fL (9.4-12.4); Platelet Count 261 K/mcL (140-400); Red Blood Count 4.55 M/mcL (3.82-4.97); Red Cell Distribution Width 13.1 % (11.5-14.5)
[2018-11-27 05:09] LABS: Albumin 3.8 g/dL (3.5-5.7); Albumin/Globulin Ratio 1.2 (1.1-2.2); Bilirubin,Total 0.3 mg/dL (0.3-1.0); Calcium 11.7 mg/dL (8.6-10.3); Globulin 3.2 g/dL (2.4-3.5); Magnesium 2.1 mg/dL (1.6-2.6); Potassium 3.3 mEq/L (3.5-5.1)
[2018-11-27] MEDS: Budesonide/Formoterol 160/4.5 1 PUFF INH IH SCH ×2 (07:43→21:36)
[2018-11-27 07:44] LABS: Bilirubin,Urine Negative (Negative); Blood,Urine Negative (Negative); Clarity,Urine Clear (Clear); Color,Urine Yellow (Yellow); Glucose,Urine (UA) Normal (Normal); Ketones,Urine Negative (Negative); Leukocyte Esterase,Urine Negative (Negative); Nitrite,Urine Negative (Negative); Protein,Urine 100 mg/dL (Neg-Trace); Specific Gravity,Urine 1.005 (1.010-1.025); Urobilinogen,Urine Normal (Normal)
[2018-11-27 07:47] LABS: Bacteria,Urine None Seen per hpf (None-Few); Hyaline Casts,Urine None Seen per lpf (None-Few); RBC,Urine 0-3 per hpf (0-3); Squamous Epithelial Cell,Urine Many per lpf (None-Few)
[2018-11-27] MEDS: Acetaminophen 325 MG TABLET PO PRN ×2 (08:02→21:23)
[2018-11-27] MEDS: predniSONE 20 MG TABLET PO SCH (08:02)
[2018-11-27] MEDS: Aspirin Enteric Coated 81 MG Tablet PO SCH (08:03)
[2018-11-27] MEDS: Benzonatate 100 MG CAPSULE PO SCH ×3 (08:03→21:24)
[2018-11-27] MEDS: Nicotine 21 MG PATCH.TD24 TD SCH (08:03)
[2018-11-27] MEDS: amLODIPine 5 MG TABLET PO SCH (08:03)
[2018-11-27] MEDS: Loratadine 10 MG TABLET PO SCH (08:03)
[2018-11-27] MEDS: cefTRIAXone 1,000 MG in Water for inj. (sterile) 20 ML 10 ML IVP SCH (08:04)
[2018-11-27] MEDS ORDERED: NON-FORMULARY MEDICATION 1 EACH EACH (Fexofenadine Hcl [Allergy Relief] 180 MG) PO SCH (09:00)
[2018-11-27] MEDS ORDERED: (Umeclidinium Bromide [Incruse Ellipta] 1 PUFF) IH SCH (09:00)
[2018-11-27] MEDS: Insulin LISPRO 300 UNITS/3 ML VIAL SQ SCH ×4 (09:23→21:27)
[2018-11-27] MEDS: Magnesium Oxide 400 MG TABLET PO SCH (09:35)
[2018-11-27] MEDS: Diltiazem SR (12hr) 60 MG CAPSULE PO SCH ×2 (09:35→21:23)
[2018-11-27] MEDS: hydrALAZINE 10 MG TABLET PO PRN (09:35)
[2018-11-27] MEDS: Mag Hydrox/Al Hydrox/Simeth 30 ML UDC PO PRN (09:37)
--- NOTE | 2018-11-27 12:17 | Internal Med Progress Note ---
Hospitalist Progress Note - Encounter Date of Encounter: 11/27/18 Time of Encounter: 12:05 - Subjective Interval History: Ms Cruz is currently admitted for resp failure and hypercalcemia with renal failure. She remains moderate to high risk due to potential for worsening clinical status. Ms Cruz is beginning to feel better today. She is coughing less and feels she is breathing better. No fever or chills. Creatinine and calcium continue to slowly improve. Son is at bedside today as well. - Exam Vitals: Temp Pulse Resp BP Pulse Ox 97.7 F 92 16 162/77 90 11/27/18 10:53 11/27/18 10:53 11/27/18 10:53 11/27/18 10:53 11/27/18 10:53 Exam: General: Alert and oriented. Comfortable at this time. Breathing seems improved. Skin: Normal color, no rash, H: Normocephalic. EENT: EOMI, pupils equal. Mucus membranes moist. Cardiovascular: Normal S1 & S2, no murmurs Pulse regular. Lungs: Decreased breath sounds. No wheeze or rhonchi at this time. Abdomen: Soft, non-tender, Normal bowel sounds. Extremities: No deformity, no edema or tenderness Neurological: Normal cognition and motor skills. Pulses: radial pulses normal +2. Rest of the physical exam is non contributory - Assessment and Plan (1) Respiratory failure Current Visit: Yes Status: Acute Assessment and Plan: Pt admitted with acute hypoxic resp failure due to COPD exacerbation. She continues to require oxygen supplementation. Continues on oxygen at this time. Weaning as able. Will do qualification prior to discharge. (2) Acute exacerbation of chronic obstructive airways disease Current Visit: Yes Status: Acute Assessment and Plan: Slowly improving. Continue abx and steroids. (3) Hypercalcemia Current Visit: Yes Status: Acute Assessment and Plan: Pt presented with calcium of greater than 14. Has received IV fluids. Had abdominal pain but no confusion. Will give more IV fluids at this time. Calcium and renal function continue to slowly improve (4) Acute renal failure Current Visit: Yes Status: Suspected Assessment and Plan: Renal function elevated on admission. Slowly improving. Receiving more fluids today. (5) Diabetes Current Visit: Yes Status: Chronic Assessment and Plan: Blood sugar controlled at this time. (6) Hypertension Current Visit: Yes Status: Chronic Assessment and Plan: Remains uncontrolled. Has been off Cozaar. On Norvasc and PRN Hydralazine (7) Hyperlipidemia Current Visit: Yes Status: Chronic Assessment and Plan: Continue home meds. (8) Tobacco abuse Current Visit: Yes Status: Chronic Assessment and Plan: Cessation counselling. Nicotine patch (9) Indigestion Current Visit: Yes Status: Chronic Assessment and Plan: Pt has had issues with heartburn. Has been seeing Dr. Boggs as outpatient. PRN Maalox. Start simethicone with meals. - Time Spent with Patient Total time spent is greater than 50% in coordination of care (as documented) at patient's floor/unit and/or counseling patient: Internal Medicine: Result - Labs CBC & Chem 7: 11/27/18 01:04 11/27/18 04:38 Labs: Short CBC 11/27/18 Range/Units 01:04 WBC 16.6 H (4.3-11.1) K/mcL Hgb 14.4 (11.5-15.4) g/dL Hct 42.5 (35.3-44.9) % Plt Count 261 (140-400) K/mcL BMP 11/27/18 04:38 Sodium 135 L Potassium 3.3 L Chloride 102 Carbon Dioxide 25 BUN 47 H Creatinine 1.94 H Glucose 118 H Calcium 11.7 H Liver Function 11/27/18 Range/Units 04:38 Total Bilirubin 0.3 (0.3-1.0) mg/dL AST 23 (13-39) Units/L ALT 19 (7-52) Units/L Alkaline Phosphatase 81 (34-104) Units/L Albumin 3.8 (3.5-5.7) g/dL Urine 11/25/18 Range/Units 19:47 Urine Color Yellow (Yellow) Urine Clarity Clear (Clear) Urine pH 7.0 (5.0-8.0) pH Units Ur Specific [place] 1.005 L (1.010-1.025) Urine Protein 100 H (Neg-Trace) mg/dL Urine Glucose (UA) Normal (Normal) mg/dL - Impressions Impressions Chest CT 11/26/18 11:00 IMPRESSION: Compared to prior chest CT scan, 08/16/2018, there is worsening appearance of consolidations in the posterior inferior lung bases bilaterally. There is also bronchial wall thickening and mucous plugging. Considering the distribution, aspiration should be considered. Worsening aeration of the right middle lobe is also noted. Pneumonia is also considered. Centrilobular emphysematous changes are present with heavy vascular calcifications. Trace pericardial effusion. The findings were sent to the Radiology Results Communication Center at 7:02 pm on 11/26/2018to be communicated to a licensed caregiver. D/ / 11/26/2018 12:17:49 Rodriguez Torres MD / cholo Interpreting Provider: Rodriguez Torres MD Consult Discharge Plan - Plan Referrals: Palma Chacko, SCHOOL TEACHER [Primary Care Provider] - (1) Respiratory failure Qualifiers: Chronicity: acute Respiratory failure complication: hypoxia Qualified Code(s): J96.01 - Acute respiratory failure with hypoxia (4) Acute renal failure Qualifiers: Acute renal failure type: with acute tubular necrosis Qualified Code(s): N17.0 - Acute kidney failure with tubular necrosis (5) Diabetes Qualifiers: Diabetes mellitus type: type 2 Diabetes mellitus long term care pharmacist insulin use: without long term care pharmacist use Diabetes mellitus complication status: with kidney complications Diabetes mellitus complication detail: with chronic kidney disease Chronic kidney disease stage: stage 3 (moderate) Qualified Code(s): E11.22 - Type 2 diabetes mellitus with diabetic chronic kidney disease; N18.3 - Chronic kidney disease, stage 3 (moderate) (6) Hypertension Qualifiers: Hypertension type: essential hypertension Qualified Code(s): I10 - Essential (primary) hypertension (7) Hyperlipidemia Qualifiers: Hyperlipidemia type: mixed hyperlipidemia Qualified Code(s): E78.2 - Mixed hyperlipidemia
[2018-11-27] MEDS: Ringers Solution, Lactated 1,000 ML IVC SCH (13:06)
[2018-11-27] MEDS: Simethicone 80 MG TAB.CHEW PO SCH ×3 (13:06→21:24)
[2018-11-27] MEDS: Tiotropium 18 MCG inhalation IH SCH (16:01)
[2018-11-27] MEDS: Azithromycin 250 MG TABLET PO SCH (16:12)
--- NOTE | 2018-11-27 22:33 | Nephrology Progress Note ---
Date of Encounter: 11/27/18 Time of Encounter: 12:00 - Assessment and Plan (1) Hypercalcemia Current Visit: Yes Status: Acute Calcium continues to improve at 11.7, continue to push fluids Workup pending: PTH and vit D WNL so far (2) Acute kidney injury superimposed on chronic kidney disease Current Visit: Yes Status: Acute SCr improving at 1.94, GFR 26, will monitor Continue to avoid nephrotoxins if possible UOP noted at 2300cc in the past 24hrs (3) CKD (chronic kidney disease) stage 3, GFR 30-59 ml/min Current Visit: Yes Status: Acute Baseline CKD with GFR 40-50s (4) Hyponatremia Current Visit: Yes Status: Acute Sodium stable at 134, continue salt tabs Continue salt packets with meals (5) Hypokalemia Current Visit: Yes Status: Acute Potassium noted at 3.3, agree with repletion Pt has a history of hypokalemia requiring aldactone, currently on hold (6) Acute exacerbation of chronic obstructive airways disease Current Visit: Yes Status: Acute per primary team Subjective Interval history: Pt seen and examined with family at bedside, doing well. No new complaints. Reports lots of UOP from IVF and 2 liters orally Objective - Vital Signs Vital signs: Vital Signs Temp Pulse Resp BP Pulse Ox 11/27/18 21:38 16 95 11/27/18 21:14 98.4 F 81 19 171/82 92 11/27/18 15:42 98.1 F 73 16 134/71 94 11/27/18 10:53 97.7 F 92 16 162/77 90 11/27/18 07:43 16 94 11/27/18 06:39 97.6 F 92 16 181/83 91 11/27/18 03:50 97.4 F L 95 17 173/84 97 Intake and Output 11/27/18 11/27/18 11/27/18 07:59 15:59 23:59 Intake Total 600 / 840 240 / 840 Output Total 600 / 600 0 / 600 Balance -600 / 240 600 / 240 240 / 240 Intake: Oral 600 / 840 240 / 840 Output: Urine 600 / 600 0 / 600 Other: Meal Lunch Dinner Percent of Meal Consumed 40% 80% Stool Size Small Stool Consistency soft Stool Color Brown # Voids 1 1 # Bowel Movements 1 Blood Glucose* 94 139 227 - General Appearance General appearance: Present: well-developed, well-nourished EENT: Present: ATNC, mucous membranes moist Neck: Present: no JVD, supple Respiratory: Present: course breath sounds Cardiology: Present: no edema, normal S1, normal S2 Gastrointestinal: Present: no tenderness, no guarding Integumentary: Present: warm and dry Neurologic: Present: no focal deficit Musculoskeletal: Present: no deformities Psychiatric: Present: mood/affect appropriate - Lab 11/27/18 01:04 11/27/18 04:38 Consult Discharge Plan - Plan Referrals: Palma Chacko, CALL CENTER SPECIALIST [Primary Care Provider] -
[2018-11-27] MEDS ORDERED: Ringers Solution, Lactated 500 ML IVC SCH (23:30)
[2018-11-28] MEDS: Ringers Solution, Lactated 1,000 ML IVC SCH (00:58)
[2018-11-28 04:56] LABS: Calcium 10.2 mg/dL (8.6-10.3); Potassium 3.4 mEq/L (3.5-5.1)
[2018-11-28] MEDS: Insulin LISPRO 300 UNITS/3 ML VIAL SQ SCH ×4 (07:36→21:42)
[2018-11-28] MEDS: Budesonide/Formoterol 160/4.5 1 PUFF INH IH SCH ×2 (07:40→22:05)
[2018-11-28] MEDS: Tiotropium 18 MCG inhalation IH SCH (07:40)
[2018-11-28] MEDS: predniSONE 20 MG TABLET PO SCH (08:10)
[2018-11-28] MEDS: Simethicone 80 MG TAB.CHEW PO SCH ×4 (08:11→21:41)
[2018-11-28] MEDS: Loratadine 10 MG TABLET PO SCH (08:11)
[2018-11-28] MEDS: amLODIPine 5 MG TABLET PO SCH (08:12)
[2018-11-28] MEDS: Benzonatate 100 MG CAPSULE PO SCH ×3 (08:12→21:41)
[2018-11-28] MEDS: Aspirin Enteric Coated 81 MG Tablet PO SCH (08:12)
[2018-11-28] MEDS: Diltiazem SR (12hr) 60 MG CAPSULE PO SCH ×2 (08:12→21:41)
[2018-11-28] MEDS: Magnesium Oxide 400 MG TABLET PO SCH (08:13)
[2018-11-28] MEDS: Nicotine 21 MG PATCH.TD24 TD SCH (08:14)
[2018-11-28] MEDS: cefTRIAXone 1,000 MG in Water for inj. (sterile) 20 ML 10 ML IVP SCH (08:16)
--- NOTE | 2018-11-28 09:28 | Internal Med Progress Note ---
<Chris Terrell - Last Filed: 11/28/18 14:14> Hospitalist Progress Note - Encounter Date of Encounter: 11/28/18 - Exam Vitals: Temp Pulse Resp BP Pulse Ox 96.6 F L 90 17 168/83 92 11/28/18 12:14 11/28/18 12:14 11/28/18 12:14 11/28/18 12:14 11/28/18 13:49 - Assessment and Plan (1) Respiratory failure Current Visit: Yes Status: Acute (2) Acute exacerbation of chronic obstructive airways disease Current Visit: Yes Status: Acute (3) Hypercalcemia Current Visit: Yes Status: Acute (4) Acute renal failure Current Visit: Yes Status: Suspected (5) Diabetes Current Visit: Yes Status: Chronic (6) Hypertension Current Visit: Yes Status: Chronic (7) Hyperlipidemia Current Visit: Yes Status: Chronic (8) Tobacco abuse Current Visit: Yes Status: Chronic (9) Indigestion Current Visit: Yes Status: Chronic - Time Spent with Patient Total time spent is greater than 50% in coordination of care (as documented) at patient's floor/unit and/or counseling patient: Internal Medicine: Result - Labs CBC & Chem 7: 11/27/18 01:04 11/28/18 04:02 Labs: BMP 11/28/18 04:02 Sodium 138 Potassium 3.4 L Chloride 102 Carbon Dioxide 24 BUN 46 H Creatinine 1.76 H Glucose 100 Calcium 10.2 Consult Discharge Plan - Plan Referrals: Palma Chacko, [employer]ER [Primary Care Provider] - - Attending Attestation I examined this patient and my medical decision-making was reviewed with the Resident Physician on 11/28/18. I agree with the documented findings, dis position and treatment plan as described except to the extent set forth below. Ms Cruz is currently admitted for acute resp failure, renal failure and hypercalcemia. She remains moderate to high risk due to potential for worsening clinical status. Ms Cruz is feeling OK. She is less dyspneic and coughing more. Tolerating IV abx. Calcium normal today. Creatinine improving. Exam alert comfortable Mucus membranes dry Heart reg and not tachy No wheeze at this time Abd soft No edema I/P 1. Resp failure - need to check for oxygen qualification - day and night 2. Renal failure -slowly improving 3. Hypercalcemia resolved. PTH related peptide pending. Probable dc in next 24-48 hours Further diagnoses and plan as above. <Juan Frank R - Last Filed: 11/28/18 14:53> Hospitalist Progress Note - Encounter Date of Encounter: 11/28/18 Time of Encounter: 08:14 - Subjective Interval History: Patient seen and examined at bedside. She reports that she is feeling better today. Her shortness of breath and cough continues to improve. Denies fevers or chills. Her renal function continues to improve. Her calcium is now normal. No acute overnight events. - Exam Vitals: Temp Pulse Resp BP Pulse Ox 98.4 F 90 16 165/81 96 11/28/18 06:33 11/28/18 06:33 11/28/18 07:40 11/28/18 06:33 11/28/18 07:40 Exam: GEN: No acute distress, alert and oriented HEAD: Atraumatic, normocephalic EYES: Pupils symmetric, sclera white, conjunctiva pink HEART: RRR, normal S1 and S2, no murmurs LUNGS: Diminished bilaterally, no wheezes, rhonchi, or crackles ABD: Soft, nontender, nondistended, bowel sounds present EXT: No edema noted, pulses 2/4 NEURO: No focal deficits, cooperative with exam - Assessment and Plan (1) Respiratory failure Current Visit: Yes Status: Acute Assessment and Plan: Acute hypoxic respiratory failure, COPD exacerbation, and Pneumonia Breathing is much improved today - requiring intermittent O2 supplementation She did not qualify for O2 on 6 minute walk test Will do overnight O2 qualification tonight (2) Pneumonia Current Visit: Yes Status: Acute Assessment and Plan: Chest CT with worsening consolidations in bilateral bases with bronchial wall thickening Clinically responding well to azithromycin + rocephin Will continue rocephin and transition to augmentin at discharge to complete 7 day course (3) Acute exacerbation of chronic obstructive airways disease Current Visit: Yes Status: Acute Assessment and Plan: Completed azithromycin Will complete prednisone burst on 11/30/18 (4) Hypercalcemia Current Visit: Yes Status: Acute Assessment and Plan: Calcium level is now normal at 10.2 Patient had abdominal pain, but no confusion We will continue IV fluids at this time PTH and TSH normal PTHrp collected and will result likely 12/01 or 12/02 (5) Acute kidney injury superimposed on chronic kidney disease Current Visit: Yes Status: Acute Assessment and Plan: Continues to improve - will give more IV fluids today Continue IV fluids, I/O's Hold losartan and spironolactone Nephrology consulted, appreciate recommendations (6) Hypertension Current Visit: Yes Status: Chronic Assessment and Plan: Elevated - increased amlodipine to 10mg today and SBP still >160's Continues on PRN hydralazine Also on diltiazem - will increase to 180mg BID (7) Abdominal pain Current Visit: Yes Status: Acute Assessment and Plan: Improving overall Continues to have reflux Continue maalo and simethicone Following with Dr. Boggs out-patient (8) Tobacco abuse Current Visit: Yes Status: Chronic Assessment and Plan: Continue nicotine patch (9) Diabetes Current Visit: Yes Status: Chronic Assessment and Plan: Controlled, continue current regimen (10) Hyperlipidemia Current Visit: Yes Status: Chronic Assessment and Plan: Continue home med DVT Prophylaxis: SQ heparin - Time Spent with Patient Total time spent is greater than 50% in coordination of care (as documented) at patient's floor/unit and/or counseling patient: Internal Medicine: Result - Labs CBC & Chem 7: 11/27/18 01:04 11/28/18 04:02 Labs: BMP 11/28/18 04:02 Sodium 138 Potassium 3.4 L Chloride 102 Carbon Dioxide 24 BUN 46 H Creatinine 1.76 H Glucose 100 Calcium 10.2 <Chris Terrell - Last Filed: 11/28/18 14:14> (1) Respiratory failure Qualifiers: Chronicity: acute Respiratory failure complication: hypoxia Qualified Code(s): J96.01 - Acute respiratory failure with hypoxia (4) Acute renal failure Qualifiers: Acute renal failure type: with acute tubular necrosis Qualified Code(s): N17.0 - Acute kidney failure with tubular necrosis (5) Diabetes Qualifiers: Diabetes mellitus type: type 2 Diabetes mellitus terminal manager insulin use: without terminal manager use Diabetes mellitus complication status: with kidney complications Diabetes mellitus complication detail: with chronic kidney disease Chronic kidney disease stage: stage 3 (moderate) Qualified Code(s): E11.22 - Type 2 diabetes mellitus with diabetic chronic kidney disease; N18.3 - Chronic kidney disease, stage 3 (moderate) (6) Hypertension Qualifiers: Hypertension type: essential hypertension Qualified Code(s): I10 - Essential (primary) hypertension (7) Hyperlipidemia Qualifiers: Hyperlipidemia type: mixed hyperlipidemia Qualified Code(s): E78.2 - Mixed hyperlipidemia <Juan Frank - Last Filed: 11/28/18 14:53> (1) Respiratory failure Qualifiers: Chronicity: acute Respiratory failure complication: hypoxia Qualified Code(s): J96.01 - Acute respiratory failure with hypoxia (2) Pneumonia Qualifiers: Pneumonia type: due to unspecified organism Laterality: bilateral Lung location: lower lobe of lung Qualified Code(s): J18.1 - Lobar pneumonia, unspecified organism (6) Hypertension Qualifiers: Hypertension type: essential hypertension Qualified Code(s): I10 - Essential (primary) hypertension (7) Abdominal pain Qualifiers: Abdominal location: generalized Qualified Code(s): R10.84 - Generalized abdominal pain (9) Diabetes Qualifiers: Diabetes mellitus type: type 2 Diabetes mellitus fdc insulin use: without fdc use Diabetes mellitus complication status: with kidney complications Diabetes mellitus complication detail: with chronic kidney disease Chronic kidney disease stage: stage 3 (moderate) Qualified Code(s): E11.22 - Type 2 diabetes mellitus with diabetic chronic kidney disease; N18.3 - Chronic kidney disease, stage 3 (moderate) (10) Hyperlipidemia Qualifiers: Hyperlipidemia type: mixed hyperlipidemia Qualified Code(s): E78.2 - Mixed hyperlipidemia
[2018-11-28] MEDS ORDERED: Ringers Solution, Lactated 1,000 ML IVC SCH (11:15)
[2018-11-28] MEDS ORDERED: Ringers Solution, Lactated 500 ML IVC SCH (12:30)
[2018-11-28] MEDS: *HR* Heparin 5,000 UNIT/ML VIAL SQ SCH ×2 (17:19→21:42)
[2018-11-28] MEDS ORDERED: Melatonin 3 MG TABLET PO SCH (21:00)
[2018-11-28] MEDS: Acetaminophen 325 MG TABLET PO PRN (21:48)
--- NOTE | 2018-11-28 23:02 | Nephrology Progress Note ---
Date of Encounter: 11/28/18 Time of Encounter: 12:00 - Assessment and Plan (1) Hypercalcemia Current Visit: Yes Status: Acute Calcium has normalized at 10.2 Awaiting workup results (2) Acute kidney injury superimposed on chronic kidney disease Current Visit: Yes Status: Acute SCr improving at 1.79, GFR 29 Continue po fluids Continue to avoid nephrotoxins if possible (3) CKD (chronic kidney disease) stage 3, GFR 30-59 ml/min Current Visit: Yes Status: Acute Baseline CKD with GFR 40-50s (4) Hyponatremia Current Visit: Yes Status: Acute Sodium noted at 138, continue salt tabs Subjective Interval history: Pt seen and examined walking the hallways with nurse, feels good. Eager to go home Objective - Vital Signs Vital signs: Vital Signs Temp Pulse Resp BP Pulse Ox 11/28/18 22:06 16 93 11/28/18 19:24 98.7 F 81 16 143/76 93 11/28/18 16:00 97.8 F 72 16 133/70 92 11/28/18 13:49 92 11/28/18 12:14 96.6 F L 90 17 168/83 93 11/28/18 07:40 16 96 11/28/18 06:33 98.4 F 90 16 165/81 90 11/28/18 03:50 98.7 F 71 17 160/57 91 11/27/18 23:55 98.4 F 81 18 171/77 95 Intake and Output 11/28/18 11/28/18 11/28/18 07:59 15:59 23:59 Intake Total 240 / 1740 1500 / 1740 Output Total 0 / 0 0 / 0 Balance 240 / 1740 1500 / 1740 Intake: IV Fluids 500 / 500 Lactated Ringers 500 ML @ 100 500 / 500 mls/hr IVC .Q5H KENJI Rx#: [id number] Oral 240 / 1240 1000 / 1240 Output: Urine 0 / 0 0 / 0 Other: Meal Breakfast Percent of Meal Consumed 50% Stool Size Small Stool Color Brown # Voids 1 2 1 # Bowel Movements 0 1 Blood Glucose* 93 179 276 - Lab 11/27/18 01:04 11/28/18 04:02 Consult Discharge Plan - Plan Referrals: Palma Chacko, D[employer]ING [employer]OX [employer]ENDER [Primary Care Provider] -
[2018-11-29] MEDS: *HR* Heparin 5,000 UNIT/ML VIAL SQ SCH (05:14)
[2018-11-29 05:24] LABS: Calcium 9.6 mg/dL (8.6-10.3); Potassium 3.5 mEq/L (3.5-5.1)
[2018-11-29 07:08] VITALS: BP 145/69
[2018-11-29] MEDS: Insulin LISPRO 300 UNITS/3 ML VIAL SQ SCH (07:12)
[2018-11-29] MEDS: Tiotropium 18 MCG inhalation IH SCH (07:19)
[2018-11-29] MEDS: Budesonide/Formoterol 160/4.5 1 PUFF INH IH SCH (07:19)
[2018-11-29] MEDS: Simethicone 80 MG TAB.CHEW PO SCH (07:26)
[2018-11-29] MEDS: Diltiazem SR (12hr) 60 MG CAPSULE PO SCH (07:26)
[2018-11-29] MEDS: cefTRIAXone 1,000 MG in Water for inj. (sterile) 20 ML 10 ML IVP SCH (07:27)
[2018-11-29] MEDS: Aspirin Enteric Coated 81 MG Tablet PO SCH (07:27)
[2018-11-29] MEDS: Benzonatate 100 MG CAPSULE PO SCH (07:27)
[2018-11-29] MEDS: Loratadine 10 MG TABLET PO SCH (07:27)
[2018-11-29] MEDS: amLODIPine 5 MG TABLET PO SCH (07:27)
[2018-11-29] MEDS: predniSONE 20 MG TABLET PO SCH (07:27)
[2018-11-29] MEDS: Nicotine 21 MG PATCH.TD24 TD SCH (07:27)
[2018-11-29] MEDS: Magnesium Oxide 400 MG TABLET PO SCH (07:27)
--- NOTE | 2018-11-29 09:44 | Discharge Summary ---
<Juan Frank - Last Filed: 11/29/18 09:41> - NOTES TO OUTPATIENT PROVIDER Notes to Outpatient Provider: Admitted with hypercalcemia (16.5) that normalized over 4 days. PTHrp is still pending and will need followed up on. If elevated the patient will likely need PET scan to evaluate for lung cancer. Also with BELKIS and initial SCr 2.69, now down to 1.58. Repeat BMP in one week. Spironolactone and losartan stopped. Increased diltiazem to 180mg BID and added amlodipine 10mg daily. Once renal function completely returns to baseline, her antihypertensives may need adjusted. She was also treated for pneumonia to complete 10 days of antibiotics. Orders not resulted at time of discharge: Pending orders 11/25/18 16:17 Vitamin D-1,25(reference test) Routine 11/26/18 06:21 Parathormone Related Peptide AM 0400 11/26/18 16:33 Angiotensin Converting Enzyme Routine Immunoelectrophoresis Routine 11/26/18 19:00 Immunofixation,Urine (BJP) Routine 11/28/18 04:02 Parathormone Related Peptide AM 0400 Date of Encounter: 11/29/18 Time of Encounter: 09:41 - Discharge Diagnosis (1) Respiratory failure Priority: Primary Status: Acute Qualifiers: Chronicity: acute Respiratory failure complication: hypoxia Qualified Code(s): J96.01 - Acute respiratory failure with hypoxia (2) Pneumonia Priority: Secondary Status: Acute Qualifiers: Pneumonia type: due to unspecified organism Laterality: bilateral Lung location: lower lobe of lung Qualified Code(s): J18.1 - Lobar pneumonia, unspecified organism (3) Acute exacerbation of chronic obstructive airways disease Priority: Secondary Status: Acute (4) Hypercalcemia Priority: Secondary Status: Acute (5) Acute kidney injury superimposed on chronic kidney disease Priority: Secondary Status: Acute (6) Hypertension Priority: Secondary Status: Chronic Qualifiers: Hypertension type: essential hypertension Qualified Code(s): I10 - Essential (primary) hypertension (7) Abdominal pain Priority: Secondary Status: Acute Qualifiers: Abdominal location: generalized Qualified Code(s): R10.84 - Generalized abdominal pain (8) Tobacco abuse Priority: Secondary Status: Chronic (9) Diabetes Priority: Secondary Status: Chronic Qualifiers: Diabetes mellitus type: type 2 Diabetes mellitus alf insulin use: without alf use Diabetes mellitus complication status: with kidney complications Diabetes mellitus complication detail: with chronic kidney disease Chronic kidney disease stage: stage 3 (moderate) Qualified Code(s): E11.22 - Type 2 diabetes mellitus with diabetic chronic kidney disease; N18.3 - Chronic kidney disease, stage 3 (moderate) (10) Hyperlipidemia Priority: Secondary Status: Chronic Qualifiers: Hyperlipidemia type: mixed hyperlipidemia Qualified Code(s): E78.2 - Mixed hyperlipidemia Hospital course: Ms. Cruz is a 68 year old female with PMH of COPD, T2DM, HTN, HLD, CKD III, and tobacco use, presented with worsening dyspnea, cough, chills, and lightheadedness. She had not been feeling well for the past month, but these symptoms are progressively getting worse over the past few days. She was diagnosed with COPD exacerbation and bilateral pneumonia. Treated with azit hromycin + rocephin and then transitioned to augmentin to complete 10 days of antibiotics. She was weaned off of oxygen and did not require supplementation at discharge (both 6 minute walk and overnight studies completed). She also had an acute kidney injury with SCr 2.69 and hypercalcemia with Ca 16.5. She was aggressively rehydrated. Neprhology also was consulted and followed her closely. Her renal function continued to improve and was nearing her baseline at discharge. Her calcium normalized with hydration. Her hypercalcemia work-up included normal PTH, TSH, 25-OH vitamin D normal, LDH normal, UA unremarkable, and renal ultrasound without hydronephrosis. She is a long-time smoker and there is significant concern for lung cancer as the cause of her hypercalcemia. PTH- related peptide is pending. Chest CT showed worsening appearance of consolidations in the posterior inferior lung bases bilaterally, bronchial wall thickening, and mucous plugging. Also shows emphysematous changes. If her PTH- related peptide is elevated she will need a PET scan or follow-up CT to ensure resolution of pneumonia and evaluation for lung mass. Other pending studies include vitamin D 1,25-OH, SPEP, UPEP, and MARY levels. She is to get a BMP in one week and follow-up with her PCP and Nephrology. Discharge discussed with: patient - Time Spent with Patient Total time spent providing and/or coordinating discharge services: - Discharge Medications Prescriptions: New Citalopram [CeleXA] 20 mg PO DAILY tablet Nicotine Patch [Nicoderm] 21 mg TD DAILY #30 patch.td24 amLODIPine [Norvasc] 10 mg PO DAILY #60 tablet predniSONE [PredniSONE] 40 mg PO DAILY #2 tablet Benzonatate [Tessalon] 100 mg PO TID capsule Budesonide/Formoterol 160/4.5 [Symbicort 160/4.5] 2 puff IH BIDR inh Amoxicillin/Clavulanate [Augmentin] 875 mg PO BIDWM #12 tablet Continued Aspirin [Lo-Dose Aspirin EC] 81 mg PO DAILY Albuterol Sulfate [Proair Respiclick] 90 mcg IH Q6H PRN PRN Reason: wheezing Metformin HCl 1,000 mg PO BID Magnesium Oxide [Magnesium] 400 mg PO DAILY Cholecalciferol (D-3) [Vitamin D] 1,000 unit PO DAILY Fexofenadine HCl [Allergy Relief] 180 mg PO DAILY Multivitamin [One Daily] 1 each PO DAILY Sodium Chloride [Sodium Chloride Tab] 1 gm PO DAILY Umeclidinium Pesotum [Incruse Ellipta] 1 puff IH DAILY Changed Polyethylene Glycol 3350 [MiraLAX] 17 gm PO DAILY PRN #0 PRN Reason: Constipation Discontinued Spironolactone [Aldactone] 25 mg PO DAILY Losartan Potassium 100 mg PO DAILY dilTIAZem HCl [Diltiazem HCl] 120 mg PO BID Home Medications: Albuterol Sulfate [Proair Respiclick] 90 mcg IH Q6H PRN 06/22/18 [History] Aspirin [Lo-Dose Aspirin EC] 81 mg PO DAILY 06/22/18 [History] Metformin HCl 1,000 mg PO BID 06/23/18 [History] Cholecalciferol (D-3) [Vitamin D] 1,000 unit PO DAILY 11/26/18 [History] Fexofenadine HCl [Allergy Relief] 180 mg PO DAILY 11/26/18 [History] Magnesium Oxide [Magnesium] 400 mg PO DAILY 11/26/18 [History] Multivitamin [One Daily] 1 each PO DAILY 11/26/18 [History] Sodium Chloride [Sodium Chloride Tab] 1 gm PO DAILY 11/26/18 [History] Umeclidinium Pesotum [Incruse Ellipta] 1 puff IH DAILY 11/26/18 [History] Amoxicillin/Clavulanate [Augmentin] 875 mg PO BIDWM #12 tablet 11/29/18 [Rx] Benzonatate [Tessalon] 100 mg PO TID capsule 11/29/18 [Rx] Budesonide/Formoterol 160/4.5 [Symbicort 160/4.5] 2 puff IH BIDR inh 11/29/18 [Rx] Citalopram [CeleXA] 20 mg PO DAILY tablet 11/29/18 [Rx] Nicotine Patch [Nicoderm] 21 mg TD DAILY #30 patch.td24 11/29/18 [Rx] Polyethylene Glycol 3350 [MiraLAX] 17 gm PO DAILY PRN #0 11/29/18 [Rx] amLODIPine [Norvasc] 10 mg PO DAILY #60 tablet 11/29/18 [Rx] predniSONE [PredniSONE] 40 mg PO DAILY #2 tablet 11/29/18 [Rx] Allergies/Adverse Reactions: Allergy/AdvReac Type Severity Reaction Status Date / Time No Known Allergies Allergy Verified 10/14/17 20:37 Date of admission: 11/25/18 15:01 Primary care physician: Palma Chacko CNP Consults: 11/26/18 11:25 Consult to Nephrology [CONS] Routine Consulting Provider: Kidney Dariela/HOMERO/BIANCA/CHELSI Reason for Consult: Renal failure, hypercalcemia Call Completed: Yes Discharging clinician: Juan Frank Anticipated date of discharge: 11/29/18 - Constitutional Vitals: Temp Pulse Resp BP Pulse Ox 98.2 F 70 14 145/69 97 11/29/18 07:07 11/29/18 07:07 11/29/18 07:20 11/29/18 07:07 11/29/18 07:20 Exam: GEN: No acute distress, alert and oriented HEAD: Atraumatic, normocephalic EYES: Pupils symmetric, sclera white, conjunctiva pink HEART: RRR, normal S1 and S2, no murmurs LUNGS: Diminished bilaterally, no wheezes, rhonchi, or crackles ABD: Soft, nontender, nondistended, bowel sounds present EXT: No edema noted, pulses 2/4 NEURO: No focal deficits, cooperative with exam - Patient Status Disposition: Home, Self-Care Condition: Good Functional capacity at discharge: independent ambulation Overall status at discharge: patient is progressing back to baseline - Ambulatory Orders Ambulatory Orders: Basic Metabolic Panel [CHEM] Time Frame: 1 Week, Facility: [facility], Location: Lab - Discharge Instructions Instructions: Prednisone (By mouth), Amoxicillin/Clavulanate Potassium (By mouth), Nicotine (Absorbed through the skin), Amlodipine (By mouth) Follow Up With: Palma Chacko JUICE WEIGHER [Primary Care Provider] - 12/06/18 1:00 pm (Please follow up as schedule...) Narayan Bass, [Partnered Physician] - Additional Instructions: Please continue Augmentin twice daily for 6 more days Please continue prednisone 40mg for one more day You have already gone several days without smoking, please continue to use the nicotine patches to help you completely quit We have changed your blood pressure medications - At this time, do not take spironolactone or losartan - Please continue amlodipine 10mg daily - Please continue diltiazem at the higher dose of 180mg twice daily - Your doctors may make further changes once your kidney function is back to baseline Please get labs drawn in 1 week to check your kidney function Please follow-up with Dr. Bass in 2-4 weeks Please follow-up with your PCP in 1-2 weeks - Diet and Activity Activity: increase activity as tolerated Diet: diabetic diet <Chris Terrell - Last Filed: 11/29/18 12:49> Orders not resulted at time of discharge: Pending orders 11/25/18 16:17 Vitamin D-1,25(reference test) Routine 11/26/18 06:21 Parathormone Related Peptide AM 0400 11/26/18 16:33 Angiotensin Converting Enzyme Routine Immunoelectrophoresis Routine 11/26/18 19:00 Immunofixation,Urine (BJP) Routine 11/28/18 04:02 Parathormone Related Peptide AM 0400 Date of Encounter: 11/29/18 - Discharge Diagnosis (1) Respiratory failure Status: Resolved Qualifiers: Chronicity: acute Respiratory failure complication: hypoxia Qualified Code(s): J96.01 - Acute respiratory failure with hypoxia (2) Acute exacerbation of chronic obstructive airways disease Status: Resolved (3) Hypercalcemia Status: Resolved (4) Acute renal failure Priority: Secondary Status: Suspected Qualifiers: Acute renal failure type: with acute tubular necrosis Qualified Code(s): N17.0 - Acute kidney failure with tubular necrosis (5) Diabetes Status: Chronic Qualifiers: Diabetes mellitus type: type 2 Diabetes mellitus alf insulin use: without alf use Diabetes mellitus complication status: with kidney complications Diabetes mellitus complication detail: with chronic kidney disease Chronic kidney disease stage: stage 3 (moderate) Qualified Code(s): E11.22 - Type 2 diabetes mellitus with diabetic chronic kidney disease; N18.3 - Chronic kidney disease, stage 3 (moderate) (6) Hypertension Status: Chronic Qualifiers: Hypertension type: essential hypertension Qualified Code(s): I10 - Essential (primary) hypertension (7) Hyperlipidemia Status: Chronic Qualifiers: Hyperlipidemia type: mixed hyperlipidemia Qualified Code(s): E78.2 - Mixed hyperlipidemia (8) Tobacco abuse Status: Chronic (9) Indigestion Priority: Secondary Status: Chronic Hospital course: Ms. Cruz is a 68 year old female - Time Spent with Patient Total time spent providing and/or coordinating discharge services: 28min Date of admission: 11/25/18 15:01 Primary care physician: Palma Chacko CNP Consults: 11/26/18 11:25 Consult to Nephrology [CONS] Routine Consulting Provider: Kidney Dariela/HOMERO/BIANCA/CHELSI Reason for Consult: Renal failure, hypercalcemia Call Completed: Yes - Constitutional Vitals: Temp Pulse Resp BP Pulse Ox 98.2 F 70 14 145/69 97 11/29/18 07:07 11/29/18 07:07 11/29/18 07:20 11/29/18 07:07 11/29/18 07:20 - Attending Attestation I examined this patient and my medical decision-making was reviewed with the Resident Physician on 11/29/18. I agree with the documented findings, disposition and treatment plan as described except to the extent set forth below. Ms Cruz has been admitted for acute hypercalcemia, resp failure and renal failure. She is no longer requiring oxygen. Her renal function is steadily improving and her calcium has normalized. PTHrp pending. Today she is feeling well and ready for discharge home. Exam Alert Comfortable Mucus membranes dry Not tachy No wheeze No edema Plan D/C home today Adjust BP meds outpatient Follow up on pending labs by PCP
[2018-11-29 14:53] LABS: Alpha 2 Globulin (PEP) 1.07 g/dL (0.48-1.05)
[2018-11-29 15:43] LABS: IFE Reflexed NOT DONE
[2018-11-29 20:36] LABS: Urine Collection Volume RANDOM mL
--- NOTE | 2018-12-01 06:24 | Electrocardiograph Report ---
[facility] Test Date: 2018-11-25 Pat Name: Gisella Cruz Department: [id number] Room: 2A14 Gender: F Contract Preparer: : 1950 Requested By: Ambrose Xavier Order Number: [id number] Reading MD: Jacky Kaminski Measurements Intervals [place] Rate: 63 P: 15 MT: 172 QRS: 0 QRSD: 78 T: 55 QT: 368 QTc: 377 Interpretive Statements Sinus rhythm Probable left atrial enlargement Electronically Signed On 12-01-2018 6:22:48 EDT by Jacky Kaminski
== END 2018-11-29 11:15 | disposition home or self-care (01) | DRG 193 ==
LOC: EMEROOARM 10:58 → SUATTDRO 15:01 → 2ANU 15:01
PROVIDERS: ADMIT Internal Medicine Nephrology; ATTEND Internal Medicine

== ENCOUNTER 2019-08-14 04:39 | Observation (INO) ==
[2019-08-14] MEDS ORDERED: Aspirin 81 MG TAB.CHEW PO ONE (05:00)
[2019-08-14 05:29] LABS: Basophils % 0.4 %; Eosinophils # 0.2 K/mcL (0.0-0.6); Eosinophils % 1.4 %; Hematocrit 45.2 % (35.3-44.9); Hemoglobin 15.6 g/dL (11.5-15.4); Immature Granulocytes % 0.5 % (0-4); Lymphocytes # 1.1 K/mcL (0.6-4.6); Lymphocytes % 10.8 %; Mean Corpuscular HGB Conc 34.5 g/dL (31.6-35.5); Mean Corpuscular Hemoglobin 31.6 pg (28.0-33.3); Mean Corpuscular Volume 91.7 fL (83.0-100.0); Mean Platelet Volume 9.8 fL (9.4-12.4); Monocytes # 0.6 K/mcL (0.0-1.3); Monocytes % 5.3 %; Neutrophils # 8.6 K/mcL (1.6-8.9); Platelet Count 321 K/mcL (140-400); Red Blood Count 4.93 M/mcL (3.82-4.97); Red Cell Distribution Width 12.6 % (11.5-14.5); Segmented Neutrophils % 81.6 %; White Blood Count 10.5 K/mcL (4.3-11.1)
[2019-08-14 05:48] LABS: BUN/Creatinine Ratio 15 (6-26); Blood Urea Nitrogen 16 mg/dL (8-23); Calcium 9.7 mg/dL (8.6-10.3); Carbon Dioxide 25 mEq/L (23-29); Chloride 98 mEq/L (98-107); Glucose 150 mg/dL (70-105); Osmolality,Calculated 282 (280-300); Potassium 3.9 mEq/L (3.5-5.1); Sodium 134 mEq/L (136-145); Troponin I < 0.03 ng/mL (< 0.04); eGFR For African Americans > 60 (> 60); eGFR For Non-African Americans 52 (> 60)
[2019-08-14] MEDS ORDERED: Acetaminophen 325 MG TABLET PO PRN (07:44)
[2019-08-14] MEDS ORDERED: Naloxone 0.4 MG/ML INJ IVP PRN (07:44)
[2019-08-14] MEDS ORDERED: Ondansetron 4 MG/2 ML VIAL IVP PRN (07:44)
[2019-08-14] MEDS ORDERED: Dextrose Gel 15 GM/37.5 ML TUBE PO PRN ×2 (07:47)
[2019-08-14] MEDS ORDERED: D5% in Water 1,000 ML IVC PRN (07:47)
[2019-08-14] MEDS ORDERED: *HR* Dextrose 50 % in Water (Syg) 50 ML SYRINGE IVP PRN (07:47)
[2019-08-14 09:07] LABS: Chol/HDL Ratio 3.8 (0-4.9); Cholesterol 254 mg/dL (< 200); HDL Cholesterol 66 mg/dL (40-59); LDL Cholesterol,Calculated 157 mg/dL (0-99); Triglycerides 155 mg/dL (< 150)
[2019-08-14] MEDS: amLODIPine 5 MG TABLET PO SCH ×2 (10:18→18:54)
[2019-08-14] MEDS: Magnesium Oxide 400 MG TABLET PO SCH (10:18)
[2019-08-14] MEDS: Nicotine 21 MG PATCH.TD24 TD SCH (10:18)
[2019-08-14 10:21] LABS: Estimated Average Glucose 154 mg/dl
[2019-08-14] MEDS: DilTIAZem SR (12hr) 60 MG CAP.ER.12H PO SCH ×2 (10:37→18:54)
[2019-08-14] MEDS: Insulin LISPRO 300 UNITS/3 ML VIAL SQ SCH ×3 (11:43→20:51)
[2019-08-14] MEDS: *HR* Heparin 5,000 UNIT/ML VIAL SQ SCH (16:50)
[2019-08-14] MEDS: Levalbuterol Neb 0.63 MG/3 ML IH SCH ×3 (19:58→22:59)
[2019-08-15] MEDS: Levalbuterol Neb 0.63 MG/3 ML IH SCH ×4 (04:12→22:08)
[2019-08-15] MEDS: *HR* Heparin 5,000 UNIT/ML VIAL SQ SCH ×2 (06:25→17:11)
[2019-08-15 06:32] LABS: Basophils # 0.1 K/mcL (0.0-0.2); Basophils % 0.8 %; Eosinophils # 0.3 K/mcL (0.0-0.6); Eosinophils % 3.5 %; Hematocrit 43.7 % (35.3-44.9); Immature Granulocytes % 0.4 % (0-4); Lymphocytes # 1.7 K/mcL (0.6-4.6); Lymphocytes % 24.1 %; Mean Corpuscular HGB Conc 34.3 g/dL (31.6-35.5); Mean Corpuscular Hemoglobin 31.8 pg (28.0-33.3); Mean Corpuscular Volume 92.6 fL (83.0-100.0); Mean Platelet Volume 10.3 fL (9.4-12.4); Monocytes # 0.6 K/mcL (0.0-1.3); Monocytes % 8.6 %; Neutrophils # 4.5 K/mcL (1.6-8.9); Platelet Count 310 K/mcL (140-400); Red Blood Count 4.72 M/mcL (3.82-4.97); Red Cell Distribution Width 12.4 % (11.5-14.5); Segmented Neutrophils % 62.6 %; White Blood Count 7.2 K/mcL (4.3-11.1)
[2019-08-15 06:46] LABS: BUN/Creatinine Ratio 19 (6-26); Blood Urea Nitrogen 20 mg/dL (8-23); Calcium 9.6 mg/dL (8.6-10.3); Carbon Dioxide 28 mEq/L (23-29); Chloride 101 mEq/L (98-107); Glucose 136 mg/dL (70-105); Osmolality,Calculated 293 (280-300); Potassium 3.5 mEq/L (3.5-5.1); Sodium 139 mEq/L (136-145); eGFR For African Americans > 60 (> 60); eGFR For Non-African Americans 51 (> 60)
[2019-08-15] MEDS: Insulin LISPRO 300 UNITS/3 ML VIAL SQ SCH ×4 (08:05→20:53)
[2019-08-15] MEDS: Aspirin Enteric Coated 81 MG Tablet PO SCH ×2 (12:02→15:34)
[2019-08-15] MEDS: DilTIAZem SR (12hr) 60 MG CAP.ER.12H PO SCH ×2 (12:02→19:34)
[2019-08-15] MEDS: amLODIPine 5 MG TABLET PO SCH ×2 (12:03→19:34)
[2019-08-15] MEDS: Magnesium Oxide 400 MG TABLET PO SCH ×2 (12:03→15:34)
[2019-08-15] MEDS: Nicotine 21 MG PATCH.TD24 TD SCH ×2 (12:03→15:32)
[2019-08-15 16:13] LABS: Bilirubin,Urine Negative (Negative); Blood,Urine Negative (Negative); Clarity,Urine Clear (Clear); Color,Urine Yellow (Yellow); Glucose,Urine (UA) Normal (Normal); Ketones,Urine Negative (Negative); Leukocyte Esterase,Urine Negative (Negative); Nitrite,Urine Negative (Negative); PH,Urine 7.5 pH Units (5.0-8.0); Protein,Urine >=300 mg/dL (Neg-Trace); Specific Gravity,Urine 1.018 (1.010-1.025); Urobilinogen,Urine Normal (Normal)
[2019-08-15 16:14] LABS: Bacteria,Urine None Seen per hpf (None-Few); Hyaline Casts,Urine None Seen per lpf (None-Few); RBC,Urine 0-3 per hpf (0-3); Squamous Epithelial Cell,Urine Many per lpf (None-Few); WBC,Urine 0-3 per hpf (0-3)
[2019-08-16] MEDS: Levalbuterol Neb 0.63 MG/3 ML IH SCH ×3 (03:57→15:33)
[2019-08-16] MEDS: *HR* Heparin 5,000 UNIT/ML VIAL SQ SCH (05:25)
[2019-08-16] MEDS ORDERED: Regadenoson 0.4 MG/5 ML SYRINGE IVP ONE (06:25)
[2019-08-16] MEDS: Aspirin Enteric Coated 81 MG Tablet PO SCH (09:32)
[2019-08-16] MEDS: amLODIPine 5 MG TABLET PO SCH (09:32)
[2019-08-16] MEDS: Magnesium Oxide 400 MG TABLET PO SCH (09:32)
[2019-08-16] MEDS: DilTIAZem SR (12hr) 60 MG CAP.ER.12H PO SCH (09:32)
[2019-08-16] MEDS: Insulin LISPRO 300 UNITS/3 ML VIAL SQ SCH ×2 (09:34→13:00)
[2019-08-16] MEDS: Nicotine 21 MG PATCH.TD24 TD SCH (09:36)
[2019-08-16 12:36] VITALS: BP 174/74
== END 2019-08-16 17:29 | disposition home or self-care (01) ==
LOC: CDU 04:39 → EMEROOARM 04:39 → SUATTDRO 07:01 → CDU 08:08 → 3BNU 08-15 12:56
PROVIDERS: ADMIT Internal Medicine; ATTEND Internal Medicine

== ENCOUNTER 2020-02-20 00:46 | Observation (INO) ==
[2020-02-20] MEDS ORDERED: Ondansetron 4 MG/2 ML VIAL IVP PRN (03:04)
[2020-02-20] MEDS ORDERED: Naloxone 0.4 MG/ML INJ IVP PRN (03:04)
[2020-02-20] MEDS ORDERED: Acetaminophen 325 MG TABLET PO PRN (03:04)
[2020-02-20 03:45] LABS: Basophils # 0.1 K/mcL (0.0-0.2); Basophils % 0.5 %; Eosinophils # 0.1 K/mcL (0.0-0.6); Eosinophils % 0.7 %; Hematocrit 44.7 % (35.3-44.9); Hemoglobin 15.1 g/dL (11.5-15.4); Immature Granulocytes % 0.7 % (0-4); Lymphocytes # 1.4 K/mcL (0.6-4.6); Lymphocytes % 11.8 %; Mean Corpuscular HGB Conc 33.8 g/dL (31.6-35.5); Mean Corpuscular Hemoglobin 32.2 pg (28.0-33.3); Mean Corpuscular Volume 95.3 fL (83.0-100.0); Mean Platelet Volume 10.3 fL (9.4-12.4); Monocytes # 0.7 K/mcL (0.0-1.3); Monocytes % 5.9 %; Neutrophils # 9.6 K/mcL (1.6-8.9); Platelet Count 348 K/mcL (140-400); Red Blood Count 4.69 M/mcL (3.82-4.97); Red Cell Distribution Width 13.2 % (11.5-14.5); Segmented Neutrophils % 80.4 %; White Blood Count 11.9 K/mcL (4.3-11.1)
[2020-02-20] MEDS ORDERED: *HR* Heparin 5,000 UNIT/ML VIAL IVP ONE (03:45)
[2020-02-20] MEDS ORDERED: *HR* Heparin 5,000 UNIT/ML VIAL IVP PRN ×2 (03:45)
[2020-02-20 03:49] LABS: INR 0.9; Prothrombin Time 10.4 Seconds (9.4-12.1)
[2020-02-20] MEDS ORDERED: Perflutren Lipid Microsphere 1.3 ML in 0.9 % Sodium Chloride 8.7 ML IVP PRN (03:59)
[2020-02-20 04:04] LABS: Albumin 3.6 g/dL (3.5-5.7); Albumin/Globulin Ratio 1.1 (1.1-2.2); Bilirubin,Total 0.3 mg/dL (0.3-1.0); Calcium 9.7 mg/dL (8.6-10.3); Chol/HDL Ratio 4.1 (0-4.9); Globulin 3.3 g/dL (2.4-3.5); Magnesium 2.1 mg/dL (1.6-2.6); Phosphorous 3.2 mg/dL (2.7-4.5); Potassium 4.7 mEq/L (3.5-5.1); Total Protein 6.9 g/dL (6.4-8.9)
[2020-02-20] MEDS: Heparin 25,000UNIT/250ML 1/2NS 25,000 UNIT/250 ML IV.SOLN IVC SCH (04:23)
[2020-02-20] MEDS: 0.9 % Sodium Chloride 1,000 ML IVC SCH ×2 (05:40→16:32)
[2020-02-20 06:30] LABS: Bilirubin,Urine Negative (Negative); Blood,Urine Negative (Negative); Clarity,Urine Clear (Clear); Color,Urine Colorless (Yellow); Glucose,Urine (UA) Normal (Normal); Ketones,Urine Negative (Negative); Leukocyte Esterase,Urine Negative (Negative); Nitrite,Urine Negative (Negative); Protein,Urine 200 mg/dL (Neg-Trace); Specific Gravity,Urine 1.011 (1.010-1.025); Squamous Epithelial Cell,Urine Few per hpf (None-Few); Urobilinogen,Urine Normal (Normal); WBC,Urine 0-3 per hpf (0-3)
[2020-02-20 08:07] LABS: Estimated Average Glucose 166 mg/dl
[2020-02-20] MEDS: Magnesium Oxide 400 MG TABLET PO SCH (08:48)
[2020-02-20] MEDS: Aspirin Enteric Coated 81 MG Tablet PO SCH (08:48)
[2020-02-20] MEDS: Spironolactone 25 MG TABLET PO SCH (08:49)
[2020-02-20] MEDS: Cholecalciferol (D-3) 1,000 UNIT (25MCG) TABLET PO SCH (08:49)
[2020-02-20] MEDS: Tiotropium 18 MCG inhalation IH SCH (10:04)
[2020-02-20] MEDS ORDERED: Metoprolol XL (24 HR) Succ 50 MG TAB.ER.24H PO SCH (10:15)
[2020-02-20] MEDS: Fluticasone Propionate Nasal 50 MCG/SPRAY BOTTLE NS SCH (10:18)
[2020-02-20 11:16] LABS: Calcium 9.8 mg/dL (8.6-10.3); Potassium 4.2 mEq/L (3.5-5.1)
[2020-02-20] MEDS ORDERED: 0.9 % Sodium Chloride 2,000 ML ONE (12:20)
[2020-02-20] MEDS ORDERED: *HR* Heparin 10,000 UNIT/10 ML VIAL ONE (12:20)
[2020-02-20] MEDS ORDERED: Heparin 1,000 UNITS/500 mL 500 ML ONE (12:20)
[2020-02-20] MEDS ORDERED: Nitroglycerin 1,000 MCG/10 ML VIAL IV ONE (12:21)
[2020-02-20] MEDS ORDERED: ISOVUE-370 200 ML INFUS..BTL ONE (12:21)
[2020-02-20] MEDS ORDERED: *HR* Midazolam HCl 2 MG/2 ML VIAL ONE (13:31)
[2020-02-20] MEDS ORDERED: *HR* FentaNYL (PF) 100 MCG/2 ML VIAL ONE (13:32)
[2020-02-20] MEDS ORDERED: Levalbuterol Neb 0.63 MG/3 ML IH PRN (15:07)
[2020-02-20] MEDS ORDERED: Dextrose Gel 15 GM/37.5 ML TUBE PO PRN ×2 (15:12)
[2020-02-20] MEDS ORDERED: *HR* Dextrose 50 % in Water (Vial) 50 ML VIAL IVP PRN (15:12)
[2020-02-20] MEDS ORDERED: D5% in Water 1,000 ML IVC PRN (15:12)
[2020-02-20] MEDS ORDERED: *HR* HYDROcodone/Acet 5/325 mg TABLET PO PRN (16:09)
[2020-02-20] MEDS: Insulin LISPRO 300 UNITS/3 ML VIAL SQ SCH ×2 (16:27→21:58)
[2020-02-20] MEDS: Loratadine 10 MG TABLET PO SCH (21:01)
[2020-02-21] MEDS ORDERED: Melatonin 3 MG TABLET PO ONE (00:21)
[2020-02-21] MEDS: 0.9 % Sodium Chloride 1,000 ML IVC SCH ×3 (00:43→19:42)
[2020-02-21 03:34] LABS: Basophils # 0.1 K/mcL (0.0-0.2); Basophils % 0.6 %; Eosinophils # 0.2 K/mcL (0.0-0.6); Eosinophils % 1.8 %; Hematocrit 39.6 % (35.3-44.9); Immature Granulocytes % 0.8 % (0-4); Lymphocytes # 1.9 K/mcL (0.6-4.6); Lymphocytes % 18.5 %; Mean Corpuscular HGB Conc 33.1 g/dL (31.6-35.5); Mean Corpuscular Hemoglobin 30.8 pg (28.0-33.3); Mean Corpuscular Volume 93.2 fL (83.0-100.0); Mean Platelet Volume 9.9 fL (9.4-12.4); Monocytes # 0.9 K/mcL (0.0-1.3); Monocytes % 8.4 %; Neutrophils # 7.1 K/mcL (1.6-8.9); Platelet Count 321 K/mcL (140-400); Red Blood Count 4.25 M/mcL (3.82-4.97); Red Cell Distribution Width 13.3 % (11.5-14.5); Segmented Neutrophils % 69.9 %; White Blood Count 10.1 K/mcL (4.3-11.1)
[2020-02-21 03:35] LABS: Hemoglobin 13.1 g/dL (11.5-15.4)
[2020-02-21 03:54] LABS: Calcium 9.2 mg/dL (8.6-10.3); Potassium 4.2 mEq/L (3.5-5.1)
[2020-02-21] MEDS: Insulin LISPRO 300 UNITS/3 ML VIAL SQ SCH ×4 (08:00→19:45)
[2020-02-21] MEDS: Cholecalciferol (D-3) 1,000 UNIT (25MCG) TABLET PO SCH (08:48)
[2020-02-21] MEDS: Aspirin Enteric Coated 81 MG Tablet PO SCH (08:48)
[2020-02-21] MEDS: DilTIAZem CD (24hr) 180 MG CAP.ER.24H PO SCH ×2 (08:48→19:42)
[2020-02-21] MEDS: Magnesium Oxide 400 MG TABLET PO SCH (08:48)
[2020-02-21] MEDS: Spironolactone 25 MG TABLET PO SCH (08:49)
[2020-02-21] MEDS: Fluticasone Propionate Nasal 50 MCG/SPRAY BOTTLE NS SCH (08:54)
[2020-02-21] MEDS ORDERED: Metoprolol XL (24 HR) Succ 25 MG TAB.ER.24H PO SCH (09:00)
[2020-02-21] MEDS ORDERED: Nicotine 14 MG PATCH.TD24 TD SCH (09:00)
[2020-02-21] MEDS ORDERED: *HR* LORazepam 0.5 MG TABLET PO ONE (09:58)
[2020-02-21] MEDS: Tiotropium 18 MCG inhalation IH SCH (10:44)
[2020-02-21] MEDS: Heparin 25,000UNIT/250ML 1/2NS 25,000 UNIT/250 ML IV.SOLN IVC SCH (17:38)
[2020-02-21 18:44] VITALS: BP 163/91
[2020-02-21] MEDS: Loratadine 10 MG TABLET PO SCH (19:42)
== END 2020-02-21 21:46 | disposition short-term general hospital (02) ==
LOC: 2ANU → SUATTDRO 03:00
PROVIDERS: ADMIT Student in an Organized Health Care Education/Training Program; ATTEND Internal Medicine

== ENCOUNTER 2021-08-09 15:55 | Inpatient (IN) ==
[2021-08-09 18:37] LABS: Basophils # 0.1 K/mcL (0.0-0.2); Basophils % 0.7 %; Eosinophils # 0.2 K/mcL (0.0-0.6); Eosinophils % 2.4 %; Hematocrit 45.3 % (35.3-44.9); Immature Granulocytes % 0.7 % (0-4); Lymphocytes # 2.2 K/mcL (0.6-4.6); Lymphocytes % 22.4 %; Mean Corpuscular HGB Conc 35.3 g/dL (31.6-35.5); Mean Corpuscular Hemoglobin 29.5 pg (28.0-33.3); Mean Corpuscular Volume 83.4 fL (83.0-100.0); Mean Platelet Volume 10.1 fL (9.4-12.4); Monocytes # 0.8 K/mcL (0.0-1.3); Monocytes % 7.8 %; Neutrophils # 6.4 K/mcL (1.6-8.9); Platelet Count 369 K/mcL (140-400); Red Blood Count 5.43 M/mcL (3.82-4.97); Red Cell Distribution Width 12.9 % (11.5-14.5); White Blood Count 9.8 K/mcL (4.3-11.1)
[2021-08-09 18:57] LABS: Calcium 9.5 mg/dL (8.6-10.3); Potassium 2.8 mEq/L (3.5-5.1)
[2021-08-09 19:39] LABS: Bilirubin,Urine Negative (Negative); Blood,Urine Negative (Negative); Clarity,Urine Clear (Clear); Color,Urine Light-Yellow (Yellow); Glucose,Urine (UA) Normal (Normal); Ketones,Urine Negative (Negative); Leukocyte Esterase,Urine Negative (Negative); Mucus,Urine Few per lpf (None-Few); Nitrite,Urine Negative (Negative); Protein,Urine >=300 mg/dL (Neg-Trace); RBC,Urine 0-3 per hpf (0-3); Squamous Epithelial Cell,Urine Moderate per hpf (None-Few); Urobilinogen,Urine Normal (Normal)
[2021-08-09] MEDS ORDERED: Potassium Effervescent 25 MEQ TABLET.EFF PO ONE (20:52)
[2021-08-09 21:21] LABS: Albumin 4.1 g/dL (3.5-5.7); Albumin/Globulin Ratio 1.2 (1.1-2.2); Bilirubin,Direct 0.1 mg/dL (0.0-0.2); Bilirubin,Indirect 0.3 mg/dL (0.0-1.0); Bilirubin,Total 0.4 mg/dL (0.3-1.0); Globulin 3.5 g/dL (2.4-3.5); Total Protein 7.6 g/dL (6.4-8.9)
[2021-08-09] MEDS ORDERED: Ondansetron 4 MG/2 ML VIAL IVP ONE (21:50)
[2021-08-09 22:08] LABS: Sodium, Urine 38.8 mEq/L
[2021-08-09 22:13] LABS: Influenza A PCR Negative (Negative); Influenza B PCR Negative (Negative); Resp. Syncytial Virus PCR Negative (Negative)
[2021-08-09 22:14] LABS: SARS-CoV-2 by PCR (In House) Negative (Negative)
[2021-08-10] MEDS ORDERED: Naloxone 0.4 MG/ML INJ IVP PRN (00:38)
[2021-08-10] MEDS ORDERED: Melatonin 3 MG TABLET PO PRN (00:38)
[2021-08-10 01:50] LABS: Basophils # 0.1 K/mcL (0.0-0.2); Basophils % 0.5 %; Eosinophils # 0.2 K/mcL (0.0-0.6); Eosinophils % 2.4 %; Hematocrit 42.5 % (35.3-44.9); Immature Granulocytes % 0.8 % (0-4); Lymphocytes # 2.1 K/mcL (0.6-4.6); Lymphocytes % 22.2 %; Mean Corpuscular HGB Conc 35.3 g/dL (31.6-35.5); Mean Corpuscular Hemoglobin 29.6 pg (28.0-33.3); Mean Corpuscular Volume 83.8 fL (83.0-100.0); Mean Platelet Volume 10.3 fL (9.4-12.4); Monocytes # 0.9 K/mcL (0.0-1.3); Monocytes % 9.7 %; Neutrophils # 6.2 K/mcL (1.6-8.9); Platelet Count 334 K/mcL (140-400); Red Blood Count 5.07 M/mcL (3.82-4.97); Red Cell Distribution Width 13.1 % (11.5-14.5); Segmented Neutrophils % 64.4 %; White Blood Count 9.7 K/mcL (4.3-11.1)
[2021-08-10 02:11] LABS: Albumin 3.5 g/dL (3.5-5.7); Albumin/Globulin Ratio 1.1 (1.1-2.2); Bilirubin,Total 0.4 mg/dL (0.3-1.0); Calcium 9.1 mg/dL (8.6-10.3); Globulin 3.1 g/dL (2.4-3.5); Magnesium 2.1 mg/dL (1.6-2.6); Phosphorous 3.1 mg/dL (2.7-4.5); Potassium 3.3 mEq/L (3.5-5.1); Total Protein 6.6 g/dL (6.4-8.9)
[2021-08-10] MEDS ORDERED: D5% in Water 1,000 ML IVC PRN (06:23)
[2021-08-10] MEDS ORDERED: Dextrose Gel 15 GM/37.5 ML TUBE PO PRN ×2 (06:23)
[2021-08-10] MEDS ORDERED: *HR* Dextrose 50 % in Water (Syg) 50 ML SYRINGE IVP PRN (06:23)
[2021-08-10] MEDS ORDERED: Potassium Chloride Elixir 20 MEQ/15 ML UDC PO ONE (06:24)
[2021-08-10] MEDS: Nicotine 21 MG PATCH.TD24 TD SCH (08:07)
[2021-08-10] MEDS: Insulin LISPRO 300 UNITS/3 ML VIAL SUBQ SCH ×4 (08:11→20:55)
[2021-08-10 08:58] LABS: Calcium 9.6 mg/dL (8.6-10.3); Potassium 3.8 mEq/L (3.5-5.1)
[2021-08-10] MEDS: Aspirin Enteric Coated 81 MG Tablet PO SCH (11:10)
[2021-08-10] MEDS: Fluticasone Propionate Nasal 50 MCG/SPRAY BOTTLE NS SCH (11:11)
[2021-08-10] MEDS: Cholecalciferol (D-3) 1,000 UNIT (25MCG) TABLET PO SCH (11:11)
[2021-08-10] MEDS: amLODIPine 5 MG TABLET PO SCH (11:11)
[2021-08-10 13:47] LABS: Calcium 8.7 mg/dL (8.6-10.3); Potassium 3.6 mEq/L (3.5-5.1)
[2021-08-10] MEDS: Torsemide 20 MG TABLET PO SCH (14:04)
[2021-08-10] MEDS: Simethicone 80 MG TAB.CHEW PO PRN (14:04)
[2021-08-10] MEDS: Ondansetron 4 MG/2 ML VIAL IVP PRN (14:04)
[2021-08-10] MEDS ORDERED: *HR* Heparin 5,000 UNIT/ML VIAL SQ SCH (18:00)
[2021-08-11 03:44] LABS: Calcium 8.8 mg/dL (8.6-10.3); Potassium 3.1 mEq/L (3.5-5.1)
[2021-08-11] MEDS: Nicotine 21 MG PATCH.TD24 TD SCH (08:24)
[2021-08-11] MEDS: Insulin LISPRO 300 UNITS/3 ML VIAL SUBQ SCH ×4 (08:25→21:02)
[2021-08-11] MEDS: Ondansetron 4 MG/2 ML VIAL IVP PRN ×2 (08:30→17:09)
[2021-08-11] MEDS: Simethicone 80 MG TAB.CHEW PO PRN ×2 (08:30→17:09)
[2021-08-11] MEDS: Acetaminophen 325 MG TABLET PO PRN ×2 (08:30→21:22)
[2021-08-11] MEDS: Aspirin Enteric Coated 81 MG Tablet PO SCH (08:31)
[2021-08-11] MEDS: Torsemide 20 MG TABLET PO SCH ×2 (08:31→21:01)
[2021-08-11] MEDS: Cholecalciferol (D-3) 1,000 UNIT (25MCG) TABLET PO SCH (08:31)
[2021-08-11] MEDS: Magnesium Oxide 400 MG TABLET PO SCH (08:31)
[2021-08-11] MEDS: amLODIPine 5 MG TABLET PO SCH (08:31)
[2021-08-11] MEDS: Fluticasone Propionate Nasal 50 MCG/SPRAY BOTTLE NS SCH (08:32)
[2021-08-11] MEDS ORDERED: 0.9 % Sodium Chloride 1,000 ML IVC SCH (10:45)
[2021-08-11] MEDS ORDERED: polyethylene glycoL 3350 17 GM POWD.PACK PO PRN (16:46)
[2021-08-12 01:10] LABS: Calcium 8.7 mg/dL (8.6-10.3); Potassium 3.4 mEq/L (3.5-5.1)
[2021-08-12] MEDS: Simethicone 80 MG TAB.CHEW PO PRN ×2 (08:09→15:59)
[2021-08-12] MEDS: amLODIPine 5 MG TABLET PO SCH (08:09)
[2021-08-12] MEDS: Cholecalciferol (D-3) 1,000 UNIT (25MCG) TABLET PO SCH (08:09)
[2021-08-12] MEDS: Magnesium Oxide 400 MG TABLET PO SCH (08:09)
[2021-08-12] MEDS: Aspirin Enteric Coated 81 MG Tablet PO SCH (08:09)
[2021-08-12] MEDS: Nicotine 21 MG PATCH.TD24 TD SCH (08:10)
[2021-08-12] MEDS: Fluticasone Propionate Nasal 50 MCG/SPRAY BOTTLE NS SCH (08:10)
[2021-08-12] MEDS: Ondansetron 4 MG/2 ML VIAL IVP PRN ×2 (08:10→15:59)
[2021-08-12] MEDS: Insulin LISPRO 300 UNITS/3 ML VIAL SUBQ SCH ×4 (08:10→19:50)
[2021-08-12] MEDS ORDERED: Milk and Molasses Enema 200 ML RC ONE (20:16)
[2021-08-13 01:34] LABS: Calcium 8.8 mg/dL (8.6-10.3); Potassium 3.8 mEq/L (3.5-5.1)
[2021-08-13] MEDS ORDERED: MOM Conc 10 ML UD.LIQ PO ONE (09:29)
[2021-08-13] MEDS: Aspirin Enteric Coated 81 MG Tablet PO SCH (10:01)
[2021-08-13] MEDS: Nicotine 21 MG PATCH.TD24 TD SCH (10:02)
[2021-08-13] MEDS: Ondansetron 4 MG/2 ML VIAL IVP PRN (10:02)
[2021-08-13] MEDS: Cholecalciferol (D-3) 1,000 UNIT (25MCG) TABLET PO SCH (10:02)
[2021-08-13] MEDS: Magnesium Oxide 400 MG TABLET PO SCH (10:02)
[2021-08-13] MEDS: Simethicone 80 MG TAB.CHEW PO PRN (10:02)
[2021-08-13] MEDS: amLODIPine 5 MG TABLET PO SCH (10:02)
[2021-08-13] MEDS: Fluticasone Propionate Nasal 50 MCG/SPRAY BOTTLE NS SCH (10:03)
[2021-08-13] MEDS: Insulin LISPRO 300 UNITS/3 ML VIAL SUBQ SCH ×2 (10:03→11:25)
[2021-08-13 10:58] VITALS: O2SAT 98
[2021-08-13 16:11] VITALS: BP 150/71; PULSE 65; TEMP 98.2
== END 2021-08-13 17:07 | disposition home or self-care (01) | DRG 641 ==
LOC: 2ANU 15:55 → EMEROOARM 15:55 → SUATTDRO 23:36 → 2ANU 08-10 00:09 → SUATTDRO 08-11 15:51
PROVIDERS: ADMIT Family Medicine; ATTEND Internal Medicine